=== PATIENT | male | born 1955 | race Caucasian/White ===

== ENCOUNTER → 2018-05-05 13:09 | Outpatient (CLI) | payer OTHER, SELFPAY ==
[2018-05-05 14:08] LABS: Absolute Lymphocyte Count 1.76 X10^3/ul (0.83-4.51); Absolute Neutrophil Count 4.3 X10^3/uL (2.0-7.7); Basophil# 0.02 X10^3/uL; Basophil% 0.3 % (0-1); Eosinophil# 0.13 X10^3/uL; Eosinophils% 1.9 % (0-5); Hematocrit 44.9 % (40-54); Hemoglobin 15.1 g/dl (13.0-16.5); Lymphocyte # 1.76 X10^3/ul (4.0); Lymphocyte % 26.3 % (19-41); Mean Corp Hgb Conc 33.6 g/gl (32-36); Mean Corpuscular Hgb 28.7 pg (27.0-32.0); Mean Corpuscular Volume 85.4 fL (80-94); Mean Platelet Vol. 9.1 fl (6.2-12.0); Monocyte# 0.52 X10^3/uL; Monocyte% 7.8 % (0-10); Neutrophil # 4.26 X10^3/uL (2.7-7.7); Neutrophil % 63.6 % (47-70); Platelet Count 189 K/mm3 (150-450); RBC Distribution Width CV 12.7 % (11.6-14.6); RBC Distribution Width SD 39.7 fl (35.1-43.9); Red Blood Count 5.26 M/mm3 (4.6-6.2); White Blood Count 6.7 K/mm3 (4.4-11.0)
[2018-05-05 14:09] LABS: POSITIVE COUNT NO; POSITIVE DIFFERENTIAL NO; POSITIVE MORPHOLOGY NO
[2018-05-05 14:25] LABS: ALB/GLOB Ratio 1.1 RATIO (0.9-2.4); AST(SGOT) 23 U/L (15-37); Alanine Aminotransfer ALT/SGPT 30 U/L (16-61); Albumin, Serum 3.8 g/dL (3.2-5.0); Alkaline Phosphatase 77 U/L (45-117); Anion Gap 8 (5-15); BUN 14 mg/dL (7-18); BUN/Creat Ratio 14.4 RATIO (10-20); Calcium,Total 8.7 mg/dL (8.5-10.1); Chloride 109 mmol/L (98-107); Cholesterol 133 mg/dL (200); Creatinine, Serum 0.97 mg/dL (0.70-1.30); EST Glomerular Filtration Rate 84 mL/min (>60); Est Glom Filt Rate - Afr Amer 101 mL/min (>60); Globulin 3.5 g/dL (2.2-4.2); Glucose 94 mg/dL (74-106); High Density Lipoprotein 39 mg/dL; PSA,Total - Annual Screen 0.55 ng/mL (0.00-4.00); Potassium 4.1 mmol/L (3.5-5.1); Protein, Total 7.3 g/dL (6.4-8.2); Sodium Level 143 mmol/L (136-145); Triglycerides 66 mg/dL; Very Low Density Lipoprotein 13 mg/dL (5-40)
== END ==
PROVIDERS: Family Provider Family Medicine; PCP Family Medicine; Visit Provider Family Medicine
DX: Z00.00 Encounter for general adult medical examination without abnormal findings (principal); Z12.5 Encounter for screening for malignant neoplasm of prostate
CPT/HCPCS: 36415; 80053; 80061; 84153; 85025; G0103

== ENCOUNTER 2018-05-10 06:54 | Day surgery (SDC) | payer OTHER, SELFPAY ==
[2018-05-10] VITALS (7 sets, daily range): BP systolic 99–116; BP diastolic 67–81; PULSE 51–59; RESP 14–16; TEMP 36.1–36.4; O2SAT 95–98; BMI 27.6
--- NOTE | 2018-05-10 08:00 | COLBX_PTH ---
PATIENT: ROSSY BRYAN LOC: EN U#:[id number] AGE/SX: 62/M ROOM: RE05/10/[address]: Dr. Porfirio Peraza MD : [id number] BED: DIS: 05/10/2018 SPEC #: [id number] RECD: 05/10/18 11:32 STATUS: NELY KAM #: [id number] CONCHIS: 05/10/18 08:[address]: Porfirio Peraza DEPT: SURGICAL PATHOLOGY RECD BY: Tay Mahoney ENTERED: 05/10/18 11:51 SP TYPE: COLON BX OTHR DR: Dr. Daly Isaac MD Tissues: Cecum, NOS Procedures: Surgery Specimen Level IV HEADER OPERATION: Colonoscopy (MAC) PRE-OP DIAGNOSIS: Screening TISSUE SUBMITTED: Cecal polyp MICROSCOPIC DIAGNOSIS Cecal polyp, biopsy: Fragments of tubular adenoma. SJ:nadia 05/11/18 MICROSCOPIC DESCRIPTION Slides are reviewed. GROSS DESCRIPTION Received in fixative is one container labeled with the patient's name and designated cecal polyp. The specimen consists of multiple irregular fragments of light brewster soft tissue that in aggregate measure 2 x 0.5 x 0.1 cm. The specimen is totally submitted in one cassette. / SJ:nadia 05/10/18 TC:1 CPT: 43272
--- NOTE | 2018-05-10 08:14 | PCM.OPRPT ---
Problem List (1) Screen for colon cancer Status: Acute Report of Operation Date of Procedure: 05/10/18 Pre-Operative Diagnosis: Screening colonoscopy Post-Operative Diagnosis: 1. Cecal polyp. 2. Diverticulosis Surgery/Procedure Performed:: Colonoscopy with snare polypectomy Specimen's removed: Cecal polyp Description of Procedure: The major risks and benefits associated with the procedure were explained to the patient in detail. The patient verbalized understanding and agreement with the same. The patient was brought to the endoscopy suite. After adequate sedation was achieved, the patient was placed in the left lateral decubitus position and a digital rectal exam was performed. This examination was within normal limits. A well-lubricated colonoscope was then inserted into the rectum and advanced under direct visualization to the level of the cecum. The bowel prep was good. The cecum was identified by both visual and anatomic landmarks. A photograph was taken of the end of the cecum. The patient had a pedunculated polyp just adjacent to the appendix. This was removed with cautery snare. The scope was then fully withdrawn while examining the color, texture, anatomy and integrity of the mucosa from the cecum to the anal canal. The findings were consistent with normal colonic mucosa. Over 6 minutes were taken to examine the colonic mucosa. The patient did have sparse diverticulosis of the entire colon. Upon reaching the rectum the scope was retroflexed to examine the distal rectal vault. The scope was then straightened and was completely retrieved upon exiting the anal canal and the procedure was terminated. The patient was then transferred to the recovery room in stable condition. Recommendations for follow up: Dependent on pathology
== END 2018-05-10 08:42 | disposition home or self-care (01) ==
LOC: EN 06:54 → AC 06:56
PROVIDERS: Family Provider Family Medicine; PCP Family Medicine; Visit Provider Surgery
PROC: 0DJD8ZZ Inspection of Lower Intestinal Tract, Via Natural or Artificial Opening Endoscopic (ICD-10-PCS; CPT 45378; principal; 2018-05-10 07:55)
DX: Z12.11 Encounter for screening for malignant neoplasm of colon (principal); D12.0 Benign neoplasm of cecum; K57.30 Diverticulosis of large intestine without perforation or abscess without bleeding; K40.90 Unilateral inguinal hernia, without obstruction or gangrene, not specified as recurrent; Z79.82 Long term (current) use of aspirin; Z87.891 Personal history of nicotine dependence
CPT/HCPCS: 45380; 88305; J7120

== ENCOUNTER 2019-09-17 09:42 | Day surgery (SDC) | payer OTHER, SELFPAY ==
--- NOTE | 2019-07-26 02:41 | HP_ITS ---
Intake Vital Signs 07/26/19 Height 5 ft 11 in 07/26/19 Weight: 205 lb 07/26/19 Body Mass Index (BMI) 28.5 07/26/19 Blood Pressure 118/79 07/26/19 Blood Pressure Location Rt brachial 07/26/19 Blood Pressure Position Sitting 07/26/19 Respiratory Rate 16 07/26/19 Body Mass Index (BMI) 29.3 Intake Visit Reasons: Ventral Hernia (seen 04/2018) Chief Complaint: Sore Throat Dentures Lab Technician Required: No Is patient in pain?: No Allergies No Known Allergies Allergy (Verified 07/26/19 14:23) [facility] [place] Medical History Recovering alcoholic (Acute) Surgical History h/o tonsillectomy (Acute) Family History Aunt Heart disease Uncle Heart disease Mother Hypertension CVA (cerebral vascular accident) Social History (Updated 07/26/19 @ 14:41 by Porfirio Peraza MD) Smoking Status: Former smoker alcohol intake: former details: recovering HPI HPI HPI: ROSSY BRYAN, is a 63 M who presents to the office today for HPI HPI Surgical H&P: Yes HPI: ROSSY BRYAN, is a 63 M who presents to the office today for right groin bulging. The patient says that his right groin bulging has gotten worse in the last few months and is causing him pain especially when lifting. He has no symptoms on the opposite side. He is having no nausea or vomiting or fevers or chills. ROS General General: No weight change, appetite, fatigue, colon cancer, breast cancer or weakness HEENT HEENT: No difficulty swallowing, eye injury, eye surgery, swollen glands or hoarseness Endo Endocrine: No thyroid disease, diabetes mellitus, thyroid cancer, Hair loss, heat intolerance or cold intolerance Skin Skin: No rash or changing moles Breast Breast: No left breast lump, right breast lump, nipple discharge, breast pain, abnormal mammogram, abnormal US or breast enlargement Musc Musculoskeletal: No back problems, arthritis, rheumatoid arthritis, gout or joint pain Cardio Cardiovascular: No murmur, pacemaker, heart disease, atrial fibrillation, high blood pressure, heart attack, heart stent, palpitations, shortness of breat with exertion or chest pain Psych Psychiatric: No depression, anxiety or hearing voices Resp Respiratory: No shortness of breath, No sleep apnea, No cough, No COPD, No asthma, No emphysema, No wheezing Gastro Gastrointestinal: Yes abdominal pain, No nausea or vomiting, No diarrhea, No constipation, No blood in stool, No acid reflux, No hemorrhoids, No ulcers, No gallbladder problem, No black,tarry stools See Hematologic: No blood thinners, No blood disorders, No bleeding, No anemia, No blood clots Neuro Neurologic: No system reviewed and no additional complaints, except as docu, No as per HPI, No abnormal walking, No abnormal hearing, No abnormal movements, No abnormal speech, No behavioral changes, No burning sensations, No confusion, No seizure-like activity, No unsteadiness, No dizziness, No localized weakness, No frequent falls, No headache(s), No lack of coordination, No loss of vision, No memory loss, No numbness, No other visual disturbances, No radiating pain, No restless legs, No sensory deficit, No fainting, No tingling, No tremor(s), No weakness, No other Exam Const General: cooperative Orientation: alert, oriented x3 HENMT Head: normal to inspection Ears: hearing grossly normal bilaterally Eyes General: appearance normal, both eyes and all related structures Visual Brown: normal visual brown by confrontation Neck Neck: normal visual inspection Chest Chest palpation & inspection: normal inspection of the chest Breast Palpation: No nipple discharge Resp Effort & Inspection: normal respiratory effort Auscultation: clear to auscultation bilaterally Cardio Rate: regular rate Rhythm: regular rhythm Heart Sounds: no murmurs GI Inspection: non-distended Palpation: soft, hernia indirect inguinal on the right, nontender Musc Cervical Spine: normal cervical lordosis, cervical ROM normal Skin General: no rashes or lesions noted Neuro General: alert, oriented x3 Cranial Nerves: CN's II-XI intact bilaterally Cognition: normal cognition Extrem General: normal to inspection, full ROM Psych Appearance: grossly normal Affect: normal affect Assessment & Plan Problems 1. Right inguinal hernia K40.90 Plan The patient has a reducible right inguinal hernia. I discussed open versus laparoscopic repair. The patient would like laparoscopic repair. I offer the patient robotic assisted laparoscopic right inguinal hernia repair with mesh. I described the risks including but not limited to bleeding, infection, injury to underlying bowel, spermatic cord injury, chronic groin pain, hernia recurrence. The patient understands risks and is willing to proceed with repair. I also discussed inspecting the contralateral side. If there is a hernia on this side I offered repair and the patient would like to have this repaired if there is a hernia on the opposite side. Porfirio Peraza MD Pager: [facility] [address] [place] [address], [address] [place] [address] Office: Coding Level of Care Code Off vis,est,level 4 Diagnoses Right inguinal hernia K40.90 Time Spent (min) 45 07/26/19 1441 <Electronically signed by Porfirio messina MD> Date _ Porfirio Peraza MD I have re-examined the patient. There are no clinical changes since date of exam.
[2019-07-26 14:23] VITALS: BMI 28.5
--- NOTE | 2019-09-11 16:23 | EKG12_ITS ---
Test Reason : PRE OP Blood Pressure : / mmHG Vent. Rate : 056 BPM Atrial Rate : 056 BPM P-R Int : 192 ms QRS Dur : 088 ms QT Int : 430 ms P-R-T Axes : 061 051 053 degrees QTc Int : 414 ms Sinus bradycardia Otherwise normal ECG Confirmed by JAKE LATIF ([id number]), medical editor GIORGIO PERRY ([id number]) on 09/14/2019 11:26:53 AM Referred By: Porfirio Peraza Confirmed By:JAKE LATIF
[2019-09-11 18:11] LABS: Hematocrit 42.2 % (40-54); Hemoglobin 14.1 g/dL (13.0-16.5); Mean Corp Hgb Conc 33.4 g/dL (32-36); Mean Corpuscular Hgb 28.5 pg (27.0-32.0); Mean Corpuscular Volume 85.4 fL (80-94); Mean Platelet Vol. 8.9 fl (6.2-12.0); Platelet Count 183 K/mm3 (150-450); RBC Distribution Width CV 11.9 % (11.6-14.6); RBC Distribution Width SD 37.1 fl (35.1-43.9); Red Blood Count 4.94 M/mm3 (4.6-6.2); White Blood Count 5.8 K/mm3 (4.4-11.0)
--- NOTE | 2019-09-17 08:45 | HP_ITS ---
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 Is patient in pain?: No Allergies No Known Allergies Allergy (Verified 07/26/19 14:23) [facility] Medical History Recovering alcoholic (Acute) Surgical History h/o tonsillectomy (Acute) Family History Aunt Heart disease Uncle Heart disease Mother Hypertension CVA (cerebral vascular accident) Social History (Updated 07/26/19 @ 14:41 by Porfirio Peraza MD) Smoking Status: Former smoker alcohol intake: former details: recovering HPI HPI HPI: ROSSY BRYAN, is a 63 M who presents to the office today for HPI HPI Surgical H&P: Yes HPI: ROSSY BRYAN, is a 63 M who presents to the office today for right groin bulging. The patient says that his right groin bulging has gotten worse in the last few months and is causing him pain especially when lifting. He has no symptoms on the opposite side. He is having no nausea or vomiting or fevers or chills. ROS General General: No weight change, appetite, fatigue, colon cancer, breast cancer or weakness HEENT HEENT: No difficulty swallowing, eye injury, eye surgery, swollen glands or hoarseness Endo Endocrine: No thyroid disease, diabetes mellitus, thyroid cancer, Hair loss, heat intolerance or cold intolerance Skin Skin: No rash or changing moles Breast Breast: No left breast lump, right breast lump, nipple discharge, breast pain, abnormal mammogram, abnormal US or breast enlargement Musc Musculoskeletal: No back problems, arthritis, rheumatoid arthritis, gout or joint pain Cardio Cardiovascular: No murmur, pacemaker, heart disease, atrial fibrillation, high blood pressure, heart attack, heart stent, palpitations, shortness of breat with exertion or chest pain Psych Psychiatric: No depression, anxiety or hearing voices Resp Respiratory: No shortness of breath, No sleep apnea, No cough, No COPD, No asthma, No emphysema, No wheezing Gastro Gastrointestinal: Yes abdominal pain, No nausea or vomiting, No diarrhea, No constipation, No blood in stool, No acid reflux, No hemorrhoids, No ulcers, No gallbladder problem, No black,tarry stools See Hematologic: No blood thinners, No blood disorders, No bleeding, No anemia, No blood clots Neuro Neurologic: No system reviewed and no additional complaints, except as docu, No as per HPI, No abnormal walking, No abnormal hearing, No abnormal movements, No abnormal speech, No behavioral changes, No burning sensations, No confusion, No seizure-like activity, No unsteadiness, No dizziness, No localized weakness, No frequent falls, No headache(s), No lack of coordination, No loss of vision, No memory loss, No numbness, No other visual disturbances, No radiating pain, No restless legs, No sensory deficit, No fainting, No tingling, No tremor(s), No weakness, No other Exam Const General: cooperative Orientation: alert, oriented x3 HENMT Head: normal to inspection Ears: hearing grossly normal bilaterally Eyes General: appearance normal, both eyes and all related structures Visual Brown: normal visual brown by confrontation Neck Neck: normal visual inspection Chest Chest palpation & inspection: normal inspection of the chest Breast Palpation: No nipple discharge Resp Effort & Inspection: normal respiratory effort Auscultation: clear to auscultation bilaterally Cardio Rate: regular rate Rhythm: regular rhythm Heart Sounds: no murmurs GI Inspection: non-distended Palpation: soft, hernia indirect inguinal on the right, nontender Musc Cervical Spine: normal cervical lordosis, cervical ROM normal Skin General: no rashes or lesions noted Neuro General: alert, oriented x3 Cranial Nerves: CN's II-XI intact bilaterally Cognition: normal cognition Extrem General: normal to inspection, full ROM Psych Appearance: grossly normal Affect: normal affect Assessment & Plan Problems 1. Right inguinal hernia K40.90 Plan The patient has a reducible right inguinal hernia. I discussed open versus laparoscopic repair. The patient would like laparoscopic repair. I offer the patient robotic assisted laparoscopic right inguinal hernia repair with mesh. I described the risks including but not limited to bleeding, infection, injury to underlying bowel, spermatic cord injury, chronic groin pain, hernia recurrence. The patient understands risks and is willing to proceed with repair. I also discussed inspecting the contralateral side. If there is a hernia on this side I offered repair and the patient would like to have this repaired if there is a hernia on the opposite side. Porfirio Peraza MD Pager: [facility] [address] [place] [address], [address] [place] [address] Office: Coding Level of Care Code Off vis,est,level 4 Diagnoses Right inguinal hernia K40.90 Time Spent (min) 45 I have re-examined the patient. There are no clinical changes since date of exam.
[2019-09-17 10:17] VITALS: BP 134/85; PULSE 58; RESP 15; TEMP 36.4; O2SAT 98; BMI 28.3
[2019-09-17] MEDS: Lactated Ringers 1,000 ML 100 ML IV ×3 (10:34→16:50)
[2019-09-17] MEDS: Cefazolin 2 GM in 0.9% Normal Saline 100 ML IV (11:49)
[2019-09-17] MEDS: Bupivacaine Mpf 0.5% 30 ML VIAL (13:07)
[2019-09-17 13:23] VITALS: BP 132/85; BP 134/85; PULSE 63; RESP 16; TEMP 36.7; O2SAT 94
[2019-09-17 13:30] VITALS: BP 126/78; BP 134/85; PULSE 58; RESP 16; O2SAT 95
[2019-09-17 13:45] VITALS: BP 119/79; BP 134/85; PULSE 56; RESP 16; O2SAT 92
[2019-09-17 14:00] VITALS: BP 108/74; BP 134/85; PULSE 55; RESP 16; TEMP 36.3; O2SAT 95
--- NOTE | 2019-09-17 14:02 | PCM.OPRPT ---
Problem List (1) Bilat ing hernia Status: Acute Qualifiers: Obstruction and gangrene presence: without obstruction or gangrene Recurrence: not specified as recurrent Qualified Code(s): K40.20 - Bilateral inguinal hernia, without obstruction or gangrene, not specified as recurrent Report of Operation Date of Procedure: 09/17/19 Pre-Operative Diagnosis: Right inguinal hernia Post-Operative Diagnosis: Bilateral inguinal hernia Surgery/Procedure Performed:: Robotic assisted laparoscopic bilateral inguinal hernia repair with mesh Description of Procedure: The patient was brought back to the operating room and general anesthesia was induced. The abdomen was prepped and draped in usual sterile fashion. An incision was made superior to the umbilicus and Flor clamps were used to grasp the fascia and elevate it. Veress needle was placed into the abdomen and a drop test was performed. Next the abdomen was insufflated to 15 mmHg. The Veress needle was removed and the camera port was placed through this incision and then the camera was placed into the abdomen to inspect for injuries and there were none. Next the patient was placed in a Trendelenburg position and it was noted the patient had a large direct right inguinal hernia and a small direct left inguinal hernia. Next an 8 mm port was placed in the right and left lateral abdominal sidewall under direct visualization. The robot was then docked. Attention was first paid to the right side. The peritoneum was incised and the dissection taken inferiorly until the hernia sac was reduced. The pubic tubercle was exposed and the dissection was carried posteriorly. Next pro-flat sorting machine clerk mesh was placed into the right inguinal region and unfolded. The pro-flat sorting machine clerk mesh was tacked to the pubic tubercle using an 0 Vicryl suture medially. Next the peritoneum was reapproximated using a running 3-0 Vloc suture. The peritoneum completely covered the mesh. Next attention was paid to the left side. In the same fashion the peritoneum was incised and the dissection was carried inferiorly until the hernia sac was reduced. The patient has small indirect and a small direct hernia on the side. Once fully dissected inferiorly a piece of pro-flat sorting machine clerk mesh was placed into the left inguinal region and unfolded completely covering both hernias. The peritoneum was then reapproximated using a running 3-0V lock suture. Next the instruments were removed and the robot was undocked. Patient was placed in flat position and the abdomen was desufflated. Scrotum was inspected and contain both testicles. Next the ports were removed and the incisions were anesthetized and closed with interrupted 4-0 Monocryl sutures. Steri-Strips and bandages were then applied. Patient tolerated procedure well was brought to PACU in stable condition. Grafts/Implants Used: ProGrip - Admit VTE Documentation VTE Mechan Device Prophylaxis: SCD's
--- NOTE | 2019-09-17 14:07 | PCM.DC.HER ---
Discharge Diet: Light diet - advance as tolerated Discharge Activity: Return to Normal Activity, May Not Drive - for 2-3 days or while taking narcotic pain meds., May Shower - with the bandage in place 1-2 days after surgery. Lifting Restrictions: 20 pounds for 4 weeks. Additional Activity Instructions:: Climbing stairs is fine, walking is encouraged. Sitting in bed may be uncomfortable. Sitting up using your lateral muscles (sitting up sideways) is usually more comfortable. Do not drive, work heavy equipment of sign legal documents for 24 hours. If your hernia repair was an ingunial repair, you may have scrotal swelling, an ice pack and/or athletic support can provide more comfort. Pain medications may cause nausea, you should typically eat light foods as you take your pain medications. Pain medications may also cause constipation. If you have difficulty with this, discuss with your doctor. Call your doctor if your incision/area has: Continuous Slow Oozing, Sudden Increased Bleeding, Increased Pain/ Swelling, Increased Redness, Foul Smelling Discharge Call your doctor if you observe: Fever of 101 or Higher Suture Line Care: Avoid Pulling/Pushing, Avoid Pinching/Bending Change Dressing in (Days):: 3 - Leave steri-strips for 1 week. May protect with a guaze bandaid. Cleanse incision/area with: Keep Dressing Clean & Dry Allergies/Adverse Reactions: Allergies No Known Allergies Allergy (Verified 09/17/19 10:16) Medications to take at Discharge Acetaminophen [Tylenol Extra Strength] 500 mg PO Q6H PRN PRN 09/10/19 Oxycodone HCl/Acetaminophen [Percocet 5/325] 1 tablet PO Q4H PRN PRN 7 Days #10 tablet 09/17/19 Orders to be completed after discharge: 12 Lead EKG [[facility]] Time Frame: 09/10/19, Facility: [facility], Location: Cardiovascular Services CBC-Complete Blood Cnt No Diff Time Frame: 09/10/19, Facility: [facility], Location: Laboratory Primary Care Physician: Daly Isaac MD [Primary Care Provider] - Test Results: Test results from this visit will be discussed in further detail at your follow-up appointment, if applicable. Please Follow Up With: Porfirio Peraza MD When: Please call to schedule 2 week follow up appointment. [phone]
[2019-09-17] MEDS: Tamsulosin HCl 0.4 MG Capsule PO (17:30)
[2019-09-17 18:23] VITALS: BP 134/85; BP 163/84; PULSE 64; RESP 16; TEMP 36.4; O2SAT 99
== END 2019-09-17 18:32 | disposition home or self-care (01) ==
LOC: SDC 09:45 → AC 09:45
PROVIDERS: Family Provider Family Medicine; PCP Family Medicine; Referring Provider Surgery; Visit Provider Surgery
PROC: (CPT 49650; principal; 2019-09-17 11:10)
DX: K40.20 Bilateral inguinal hernia, without obstruction or gangrene, not specified as recurrent (principal); Z87.891 Personal history of nicotine dependence
CPT/HCPCS: 00840; 49650; 36415; 85027; 93005; J7120; J2405

== ENCOUNTER → 2020-01-18 | Outpatient (CLI) | payer OTHER, SELFPAY ==
[2020-01-18 12:19] LABS: Absolute Lymphocyte Count 1.59 X10^3/uL (0.83-4.51); Absolute Neutrophil Count 3.3 X10^3/uL (2.0-7.7); Basophil# 0.03 X10^3/uL; Basophil% 0.5 % (0-1); Eosinophil# 0.09 X10^3/uL; Eosinophils% 1.6 % (0-5); Hematocrit 45.2 % (40-54); Hemoglobin 14.9 g/dL (13.0-16.5); Lymphocyte # 1.59 X10^3/ul (4.0); Lymphocyte % 28.3 % (19-41); Mean Corpuscular Hgb 28.6 pg (27.0-32.0); Mean Corpuscular Volume 86.8 fL (80-94); Mean Platelet Vol. 9.2 fl (6.2-12.0); Monocyte# 0.55 X10^3/uL; Monocyte% 9.8 % (0-10); NRBC Flagged by Analyzer 0 % (0-5); Neutrophil # 3.34 X10^3/uL (2.7-7.7); Neutrophil % 59.4 % (47-70); Platelet Count 203 K/mm3 (150-450); RBC Distribution Width CV 12.2 % (11.6-14.6); RBC Distribution Width SD 38.8 fl (35.1-43.9); Red Blood Count 5.21 M/mm3 (4.6-6.2); White Blood Count 5.6 K/mm3 (4.4-11.0)
[2020-01-18 12:51] LABS: ALB/GLOB Ratio 1.2 RATIO (0.9-2.4); AST(SGOT) 20 U/L (15-37); Alanine Aminotransfer ALT/SGPT 29 U/L (16-61); Albumin, Serum 3.8 g/dL (3.2-5.0); Alkaline Phosphatase 70 U/L (45-117); Anion Gap 4 (5-15); BUN 12 mg/dL (7-18); BUN/Creat Ratio 12.4 RATIO (10-20); Calcium,Total 8.7 mg/dL (8.5-10.1); Chloride 106 mmol/L (98-107); Cholesterol 169 mg/dL (200); Creatinine, Serum 0.97 mg/dL (0.70-1.30); EST Glomerular Filtration Rate 83 mL/min (>60); Est Glom Filt Rate - Afr Amer 101 mL/min (>60); Globulin 3.3 g/dL (2.2-4.2); Glucose 85 mg/dL (74-106); High Density Lipoprotein 45 mg/dL; PSA,Total - Annual Screen 0.64 ng/mL (0.00-4.00); Potassium 4.2 mmol/L (3.5-5.1); Protein, Total 7.1 g/dL (6.4-8.2); Sodium Level 138 mmol/L (136-145); Triglycerides 101 mg/dL; Very Low Density Lipoprotein 20 mg/dL (5-40)
== END | disposition home or self-care (01) ==
LOC: MTLAB 10:31
PROVIDERS: PCP Family Medicine; Referring Provider Family Medicine; Visit Provider Family Medicine
DX: Z00.00 Encounter for general adult medical examination without abnormal findings (principal)
CPT/HCPCS: 36415; 80053; 80061; 84153; 85025; G0103

== ENCOUNTER 2020-10-13 05:45 | Emergency (ER) | payer OTHER, SELFPAY ==
[2020-10-13 05:45] VITALS: BP 179/102; PULSE 65; RESP 15; TEMP 36.7; O2SAT 98; BMI 29.7
--- NOTE | 2020-10-13 06:01 | CT_ITS ---
STUDY: CT ABDOMEN AND PELVIS WITH CONTRAST REASON FOR EXAM: Male, 64 years old. MID ABD PAIN. RADIATION DOSAGE (If Supplied By Facility): CTDIvol = ( 13.295 ) mGy, DLP = ( 937.12 ) mGycm TECHNIQUE: Transaxial images were obtained from the dome of the diaphragm to the symphysis pubis with oral contrast. 100 mL of IV ISOVUE-300 was administered. Sagittal and coronal images were reconstructed. Individualized dose optimization techniques were used for this CT. COMPARISON: None. FINDINGS: The visualized lung bases are unremarkable. The visualized portions of the heart are within normal limits. Normal liver. Normal gallbladder and extrahepatic biliary system. Normal spleen. Normal pancreas. Normal bilateral adrenal glands. Normal right kidney. Normal left kidney. Normal visualized stomach. Normal small intestine. Normal colon. The appendix is visualized and appears normal. Minimal calcified plaques in the infrarenal abdominal aorta. No abdominal aortic aneurysm. Normal inferior vena cava. Normal retroperitoneum. Minimal thickening of the posterior urinary bladder wall. The right lateral aspect of the prostate gland is mildly prominent when compared to the left. The central lobe of prostate gland is normal in size and configuration. Anterior midline upper abdominal wall hernia containing only omental fat. There is mild stranding and haziness of the omental fat. Moderate dextroscoliosis of the upper lumbar spine. No acute osseous abnormality. CT/Abdomen/Pelvis WITH Contrast IMPRESSION: 1. Anterior midline upper abdominal wall hernia containing only omental fat but there is some mild stranding and haziness of the herniated omental fat possibly due to infarction. 2. Minimal thickening of the posterior urinary bladder wall. Cystoscopy may be indicated. 3. Prominent right lateral aspect of the prostate gland. MRI of the prostate may be helpful for further evaluation. Electronically Signed: Marcin Caceres MD at 8:31 EST , Service support ,
--- NOTE | 2020-10-13 06:04 | ED.DCSUM_ITS ---
- ER Visit Summary Date of Service: 10/13/20 Chief Complaint: Abdominal pain History of Present Illness: The patient is a 64 M who presents with abdominal pain that became worse today. Patient states he has had intermittent abdominal pain for several months. Patient states the pain became worse today. Patient states the pain is over the mid abdomen. Patient describes it as sharp. Patient states nothing makes it better and nothing makes it worse. Patient admits to some nausea but denies any vomiting. Patient denies any diarrhea, melena, or hematochezia. Patient denies any dysuria or hematuria. Patient denies any fevers or chills. Physical Examination: Vital signs are stable. Patient is afebrile. Patient is in no acute distress. Oral mucosa is pink and moist. Neck is supple. Trachea is midline. There is no JVD noted. Heart was regular rate and rhythm. Lungs a re clear and equal bilaterally. Abdomen is soft. Bowel sounds are normal. There is mild mid abdominal tenderness above the umbilicus. There is a ventral hernia noted. It is easily reduced. There is no rebound or guarding noted. Skin is warm dry. Cranial nerves II through XII are intact. There are no focal motor or sensory deficits noted. Extremities are intact. There is no calf tenderness or edema. Test Results: CBC and comprehensive metabolic profile were within normal limits. Lipase was normal. Urinalysis is ordered and is pending. CT scan of the abdomen and pelvis was obtained and is pending. Emergency Department Course and Treatment: Patient was given IV fluids and Zofran. Disposition: Care of the patient was turned over to the oncoming physician pending urinalysis and CT scan. Impression: 1. Abdominal pain This note was generated with [employer] dictation software. It may contain incorrect words, spelling, and punctuation that were not noted in review of the chart prior to signing ED Disposition - Plan for ED Patient: Referrals: Daly Isaac MD [Primary Care Provider] -
[2020-10-13 06:08] LABS: Absolute Neutrophil Count 4.5 X10^3/uL (2.0-7.7); Basophil# 0.04 X10^3/uL; Basophil% 0.5 % (0-1); Eosinophil# 0.13 X10^3/uL; Eosinophils% 1.7 % (0-5); Hematocrit 48.8 % (40-54); Hemoglobin 16.7 g/dL (13.0-16.5); Lymphocyte % 29.7 % (19-41); Mean Corp Hgb Conc 34.2 g/dL (32-36); Mean Corpuscular Hgb 29.9 pg (27.0-32.0); Mean Corpuscular Volume 87.3 fL (80-94); Mean Platelet Vol. 9.4 fl (6.2-12.0); Monocyte# 0.77 X10^3/uL; Monocyte% 9.9 % (0-10); NRBC Flagged by Analyzer 0 % (0-5); Neutrophil # 4.48 X10^3/uL (2.7-7.7); Neutrophil % 57.8 % (47-70); Platelet Count 188 K/mm3 (150-450); RBC Distribution Width CV 12.9 % (11.6-14.6); RBC Distribution Width SD 39.1 fl (35.1-43.9); Red Blood Count 5.59 M/mm3 (4.6-6.2); White Blood Count 7.8 K/mm3 (4.4-11.0)
[2020-10-13] MEDS: Ondansetron 4 MG/2 ML Vial IV (06:13)
[2020-10-13] MEDS: 0.9% Normal Saline 1,000 ML 1000 ML IV (06:13)
[2020-10-13 06:20] LABS: ALB/GLOB Ratio 1.1 RATIO (0.9-2.4); AST(SGOT) 19 U/L (15-37); Alanine Aminotransfer ALT/SGPT 28 U/L (16-61); Alkaline Phosphatase 81 U/L (45-117); Anion Gap 5 (5-15); BUN 14 mg/dL (7-18); BUN/Creat Ratio 12.5 RATIO (10-20); Chloride 104 mmol/L (98-107); Creatinine, Serum 1.12 mg/dL (0.70-1.30); EST Glomerular Filtration Rate 70 mL/min (>60); Est Glom Filt Rate - Afr Amer 85 mL/min (>60); Estimated Creatinine Clearance 75.06 ml/min; Globulin 3.7 g/dL (2.2-4.2); Glucose 106 mg/dL (74-106); Lipase 153 U/L (73-393); Potassium 4.2 mmol/L (3.5-5.1); Protein, Total 7.7 g/dL (6.4-8.2); Sodium Level 138 mmol/L (136-145)
[2020-10-13 06:44] LABS: Bacteria 0 SEEN /hpf (None Seen); Mucous, Urine 0 SEEN /hpf (<or=2+); Squamous Epithelial Cells - UA 0 SEEN /hpf (0-5); White Blood Cells 0 SEEN /hpf (0-5)
[2020-10-13 07:00] LABS: Color, Urine Yellow (Yellow); Glucose, Dipstick Normal (Normal); Ketone-Dipstick Negative (Negative); Urine Bilirubin Dipstick Negative (Negative); Urine Clarity Clear (Clear)
[2020-10-13 07:01] LABS: Leukocyte Esterase-Dipstick Negative /ul (Negative); Nitrite-Dipstick Negative (Negative); Occult Blood-Urine Negative /ul (Negative); Protein-Dipstick Negative (Negative); Specific Gravity, Urine 1.025 (1.002-1.030); Urine Urobilinogen Normal (Normal)
[2020-10-13 07:04] LABS: Red Blood Cells-Urine 0-5 SEEN /hpf (0-5)
[2020-10-13 08:09] VITALS: BP 138/84; PULSE 85; RESP 16; O2SAT 95
--- NOTE | 2020-10-13 08:10 | ED.DCSUM_ITS ---
- ER Visit Summary Date of Service: 10/13/20 Chief Complaint: [] History of Present Illness: The patient is a 64 M [] Physical Examination: [] Test Results: [] Emergency Department Course and Treatment: [] Treatment Plan: [] Disposition: [] Impression: [] This note was generated with [employer] dictation software. It may contain incorrect words, spelling, and punctuation that were not noted in review of the chart prior to signing ED Disposition - Plan for ED Patient: Disposition: Home or Assisted Living Instructions: ED Hernia (Adult) Prescriptions: Docusate Sodium [Dulcolax Stool Softener] 100 mg PO DAILY #20 cap Transmission Status: Pending to [facility] Referrals: Daly Isaac MD [Primary Care Provider] -
--- NOTE | 2020-10-13 08:12 | ED.DCSUM_ITS ---
- ER Visit Summary Date of Service: 10/13/20 Chief Complaint: [] History of Present Illness: The patient is a 64 M [] Physical Examination: [] Test Results: [] Emergency Department Course and Treatment: [] Treatment Plan: [] Disposition: [] Impression: [] This note was generated with [employer] dictation software. It may contain incorrect words, spelling, and punctuation that were not noted in review of the chart prior to signing ED Disposition - Plan for ED Patient: Disposition: Home or Assisted Living Instructions: ED Hernia (Adult) Prescriptions: Docusate Sodium [Dulcolax Stool Softener] 100 mg PO DAILY #20 cap Transmission Status: Sent to [facility] Referrals: Daly Isaac MD [Primary Care Provider] - Porfirio Peraza MD [STAFF PHYSICIAN] -
== END 2020-10-13 09:08 | disposition home or self-care (01) ==
PROVIDERS: Emergency Provider Emergency Medicine; PCP Family Medicine
DX: K43.9 Ventral hernia without obstruction or gangrene (principal)
CPT/HCPCS: 74177; 80053; 81001; 83690; 85025; 96361; 96374; 99283; J7030; Q9967; A4216; J2405

== ENCOUNTER 2020-11-10 06:00 | Day surgery (SDC) | payer OTHER, SELFPAY ==
[2020-10-23 13:53] VITALS: BMI 29.3
--- NOTE | 2020-11-07 13:06 | EKG12_ITS ---
Test Reason : PREOP Blood Pressure : / mmHG Vent. Rate : 069 BPM Atrial Rate : 069 BPM P-R Int : 170 ms QRS Dur : 088 ms QT Int : 402 ms P-R-T Axes : 029 054 042 degrees QTc Int : 430 ms Normal sinus rhythm Normal ECG Confirmed by TAE FREEMAN, DEONTE ([id number]), social media editor GIORGIO PERRY ([id number]) on 11/11/2020 12:21:57 PM Referred By: Daly Isaac Confirmed By:DEONTE STRONG MD
[2020-11-10] VITALS (13 sets, daily range): BP systolic 113–175; BP diastolic 82–106; PULSE 50–62; RESP 16–18; TEMP 36.2–36.5; O2SAT 92–100; BMI 28.7
--- NOTE | 2020-11-10 05:00 | HP_ITS ---
Intake Vital Signs 10/23/20 Height 6 ft 10/23/20 Weight: 216 lb 7 oz 10/23/20 BP 147/84 H 10/23/20 Blood Pressure Location Rt brachial 10/23/20 Position Sitting 10/23/20 Respiration 20 H 10/23/20 Pulse 98 10/23/20 Pulse Source NIBP 10/23/20 Temp 98.2 F 10/23/20 Temp Source Temporal 10/23/20 Pulse Oximetry (%) 99 10/23/20 Oxygen Delivery Method room air Intake Visit Reasons: Hernia [facility] ER F/U 10/13 Chief Complaint: abdominal hernia Is patient in pain?: No Allergies No Known Allergies Allergy (Verified 10/23/20 13:53) Medications Docusate Sodium [Dulcolax Stool Softener] 100 mg PO DAILY #20 cap 10/13/20 [Rx Confirmed 10/23/20] [facility] Medical History Gout (Acute) Recovering alcoholic (Acute) Surgical History (Updated 10/23/20 @ 13:52 by Christa Marrero) History of bilateral inguinal hernia repair (Acute ~2018) History of colonoscopy (Acute ~2017) History of tonsillectomy (Acute) Family History Aunt Heart disease Uncle Heart disease Mother Hypertension CVA (cerebral vascular accident) Social History (Updated 10/24/20 @ 12:[address] Porfirio Peraza MD) Smoking Status: Former smoker alcohol intake: former details: recovering HPI HPI HPI: ROSSY BRYAN, is a 64 M who presents to the office today for HPI HPI Surgical H&P: Yes HPI: ROSSY BRYAN, is a 64 M who presents to the office today for Ventral hernia. The patient reports bulging in his upper abdomen as well as pain. It has been worse lately and he even went to the emergency room because of this. He is not report any radiation or nausea or vomiting. ROS General General: No weight change, appetite, fatigue, colon cancer, breast cancer or weakness HEENT HEENT: No difficulty swallowing, eye injury, eye surgery, swollen glands or hoarseness Endo Endocrine: No thyroid disease, diabetes mellitus, thyroid cancer, Hair loss, heat intolerance or cold intolerance Musc Musculoskeletal: Yes gout; no back problems, arthritis, rheumatoid arthritis or joint pain Cardio Cardiovascular: No murmur, pacemaker, heart disease, atrial fibrillation, high blood pressure, heart attack, heart stent, palpitations, shortness of breat with exertion or chest pain Psych Psychiatric: No depression, anxiety or hearing voices Resp Respiratory: No shortness of breath, No sleep apnea, No cough, No COPD, No asthma, No emphysema, No wheezing Gastro Gastrointestinal: Yes abdominal pain, No nausea or vomiting, No diarrhea, No constipation, No blood in stool, No acid reflux, No hemorrhoids, No ulcers, No gallbladder problem, No black,tarry stools See Hematologic: No blood thinners, No blood disorders, No bleeding, No anemia, No blood clots Neuro Neurologic: No weakness Exam Const General: cooperative Orientation: alert, oriented x3 Resp Effort & Inspection: normal respiratory effort Auscultation: clear to auscultation bilaterally Cardio Rate: regular rate Rhythm: regular rhythm Heart Sounds: no murmurs GI Inspection: non-distended Palpation: soft, hernia ventral, nontender Assessment & Plan Problems 1. Ventral hernia without obstruction or gangrene K43.9 Plan Patient has a ventral hernia superior to the umbilicus. He had a CT scan in the emergency room recently which showed a ventral hernia containing omental fat. The hernia is superior to the prior incision from his laparoscopic inguinal hernia repair. I discussed laparoscopic hybrid approach for ventral hernia. I discussed opening the hernia and reducing the contents and closing the hernia and then laparoscopically placing mesh in the intraabdominal space. I explained mesh to the patient as well as well as coated mesh and intra-abdominal risks. I discussed the risks of the procedure including allergy to bleeding, infection, injury to underlying bowel. The patient understands risks and is well to proceed. I will schedule patient for laparoscopic possible open ventral hernia repair with mesh. We discussed the current risks associated with COVID-19. While it is understood that there is a community spread of COVID-19, the risk of marilynn COVID-19 while at [facility] ([facility]) is very low; however, the risk cannot be completely mitigated because of the community spread of the disease. We discussed in detail the risk of exposure to and/or potential harm posed by the COVID-19 virus with having a surgery/procedure at this time versus the risk of delaying the surgery/procedure. It is not possible to know either the risk of delaying the surgery or procedure or chance of getting an infection with perfect accuracy, but a joint decision was made to proceed at this time with the scheduled surgery/procedure as indicated on the consent form. Patient was notified that we will need to comply with any screening or testing [facility] wishes to perform or that surgery may be delayed for any positive results. Porfirio Peraza MD Pager: [facility] [address] [place] [address], [address] [place] [address] Office: Coding Level of Care Code Off vis,est,level 3 Diagnoses Ventral hernia without obstruction or gangrene K43.9 ??Obstruction and gangrene presence: without obstruction or gangrene I have seen and reexamined the patient. no changes since prior exam.
[2020-11-10] MEDS: Lactated Ringers 1,000 ML 100 ML IV ×2 (06:41→08:30)
[2020-11-10] MEDS: Cefazolin 2 GM in 0.9% Normal Saline 100 ML IV (07:15)
--- NOTE | 2020-11-10 07:30 | HERN_PTH ---
PATIENT: ROSSY BRYAN LOC: [facility] [place] U#:[id number] AGE/SX: 64/M ROOM: RE11/10/[address]: Dr. Porfirio Peraza MD : 1955 BED: DIS: 11/10/2020 SPEC #: [id number] RECD: 11/10/20 10:20 STATUS: NELY NEGIN #: [id number] CONCHIS: 11/10/20 07:[address]: Porfirio Peraza DEPT: SURGICAL PATHOLOGY RECD BY: Le Hill ENTERED: 11/10/20 10:35 SP TYPE: Hernia OTHR DR: Dr. Daly Isaac MD Tissues: HERNIA Procedures: Surgery Specimen Level II HEADER OPERATION: Laparoscopic with conversion to open ventral hernia repair PRE-OP DIAGNOSIS: Ventral hernia TISSUE SUBMITTED: Hernia sac MICROSCOPIC DIAGNOSIS Hernia sac, herniorrhaphy: Fibrosis and mild chronic inflammation. AM:nadia 11/11/2020 MICROSCOPIC DESCRIPTION Slides are reviewed. GROSS DESCRIPTION Received in fixative is one container labeled with the patient's name and designated hernia sac. The specimen consists of a piece of soft tissue measuring 6 x 4 x 1.5 cm. No mass lesion is identified. Sections do not reveal any mass lesion. Gas Prover sections are submitted in one cassette. / SJ:rg 11/10/20 TC:3 CPT: 76681
[2020-11-10] MEDS: Bupiv/Epi 0.25% 30 ML Vial (08:00)
--- NOTE | 2020-11-10 08:42 | PCM.OPRPT ---
Problem List (1) Ventral hernia Status: Acute Qualifiers: Obstruction and gangrene presence: without obstruction or gangrene Qualified Code(s): K43.9 - Ventral hernia without obstruction or gangrene Report of Operation Date of Procedure: 11/10/20 Pre-Operative Diagnosis: Incarcerated ventral hernia Post-Operative Diagnosis: Same Surgery/Procedure Performed:: Open converted to laparoscopic hybrid approach ventral hernia repair with mesh Specimen's removed: Hernia sac Description of Procedure: Patient was brought back to the operating room and general anesthesia was induced. The abdomen was prepped and draped in usual sterile fashion. An incision was marked over the hernia bulge and injected with local anesthetic. Incision was made with a scalpel and deepened to the hernia sac using electrocautery. The hernia sac was bluntly dissected free from all its lateral adhesions and then opened. It contained omentum that was incarcerated. After releasing adhesions to the hernia sac the omentum was able to be reduced into the abdomen and the hernia sac was resected using electrocautery. Finger sweep was performed and there is good clearance all around the hernia. Interrupted 0 PDS sutures were placed at the superior and inferior end of the hernia and 2 [id number] 0 PDS sutures were used to close the hernia but they have not tied yet. Next a balloon port was placed into the hernia and the abdomen was insufflated to 15 mmHg. Under direct visualization a left lateral lower quadrant and a left upper quadrant 5 mm port were placed. The patient's abdomen was inspected and he appeared to have an umbilical hernia as well. The distance between the tumor measured and a [address] light ST mesh with echo positioning device was chosen. It was placed into the abdomen and next using a Zachary Polk between the 2 hernias the balloon was brought through the skin. It was inflated and the mesh was pulled taut and appeared to cover both hernias sufficiently with good overlap. Next the balloon port was removed from the abdomen and the sutures were tightened completely closing the ventral hernia. Secure strap tacks were placed in 4 quadrants of the mesh and then the echo to positioning device was removed from it and removed from the abdomen. It was checked and appeared complete. Next using secure strap tacker the mesh was secured to the anterior fascia circumferentially in 2 rows. The abdomen was then allowed to desufflate. The cavity from the hernia sac was irrigated and suctioned dry and appeared large enough that a seroma would form so a 15 [place] round drain was placed into it and exited through the skin lateral to the incision. It was sutured to the skin using a 3-0 nylon suture. Next the skin at the incision site was anesthetized and closed with interrupted 3-0 Vicryl sutures as well as a running 4-0 Monocryl suture. The 2 port sites were closed interrupted 4-0 Monocryl sutures. They were also injected with local anesthetic. Bandages and Steri-Strips were applied and the drain was placed to bulb suction. Patient was then awoken and taken to PACU in stable condition tolerated procedure well. Grafts/Implants Used: [address] mesh - Admit VTE Documentation VTE Mechan Device Prophylaxis: SCD's
--- NOTE | 2020-11-10 08:53 | DCINST_ITS ---
Discharge Diet: Light diet - advance as tolerated Discharge Activity: Return to Normal Activity, May Not Drive - for 2-3 days or while taking narcotic pain meds., May Shower - with the bandage in place 1-2 days after surgery. Lifting Restrictions: 20 pounds for 6 weeks. Additional Activity Instructions:: Climbing stairs is fine, walking is encouraged. Sitting in bed may be uncomfortable. Sitting up using your lateral muscles (sitting up sideways) is usually more comfortable. Do not drive, work heavy equipment of sign legal documents for 24 hours. Pain medications may cause nausea, you should typically eat light foods as you take your pain medications. Pain medications may also cause constipation. If you have difficulty with this, discuss with your doctor. Call your doctor if your incision/area has: Continuous Slow Oozing, Sudden Increased Bleeding, Increased Pain/ Swelling, Increased Redness, Foul Smelling Discharge Call your doctor if you observe: Fever of 101 or Higher Suture Line Care: Avoid Pulling/Pushing, Avoid Pinching/Bending Change Dressing in (Days):: 3 - Leave steri-strips for 1 week. May protect with a guaze bandaid. Cleanse incision/area with: Keep Dressing Clean & Dry Drain: Suction Allergies/Adverse Reactions: Allergies No Known Allergies Allergy (Verified 11/10/20 06:23) Medications to take at Discharge Docusate Sodium [Dulcolax Stool Softener] 100 mg PO PRN PRN 11/03/20 Oxycodone HCl/Acetaminophen [Percocet 5-325 mg Tablet] 1 - 2 tab PO Q6H PRN PRN 5 Days #40 tablet 11/10/20 The following prescriptions were given: Oxycodone HCl/Acetaminophen [Percocet 5-325 mg Tablet] 1 - 2 tab PO Q6H PRN PRN 5 Days #40 tablet PRN Reason: Pain Score 4-10/10 Transmission Status: Sent to [facility] Orders to be completed after discharge: 12 Lead EKG [CVS] Time Frame: 11/07/20, Facility: [facility], Location: Cardiovascular Services Primary Care Physician: Daly Isaac MD [Primary Care Provider] - Test Results: Test results from this visit will be discussed in further detail at your follow- up appointment, if applicable. Please Follow Up With: Porfirio Peraza MD When: Please call to schedule 1 week follow up appointment. [phone]
[2020-11-10] MEDS: oxyCODONE 5 MG Tablet PO (10:42)
[2020-11-10] MEDS: Acetaminophen 325 MG Tablet PO (10:43)
[2020-11-10] MEDS: Tamsulosin HCl 0.4 MG Capsule PO (11:53)
--- NOTE | 2020-11-10 12:24 | SUR.PHASEII ---
1222 pt unable to void. straight cath for 900ml deepti urine. flomax given per order. will cont to monitor.
== END 2020-11-10 12:44 | disposition home or self-care (01) ==
LOC: SDC 06:00 → AC 06:01
PROVIDERS: PCP Family Medicine; Referring Provider Family Medicine; Visit Provider Surgery
PROC: 0WQF4ZZ Repair Abdominal Wall, Percutaneous Endoscopic Approach (ICD-10-PCS; CPT 49653; principal; 2020-11-10 07:10)
DX: K43.6 Other and unspecified ventral hernia with obstruction, without gangrene (principal); K42.9 Umbilical hernia without obstruction or gangrene; Z20.828 Contact with and (suspected) exposure to other viral communicable diseases; Z87.891 Personal history of nicotine dependence
CPT/HCPCS: 00832; 49653; 87426; 88302; 93005; C9803; J7120; J2405

== ENCOUNTER → 2023-01-15 | Outpatient (CLI) | payer OTHER, MEDICARE, SELFPAY ==
[2023-01-15 09:10] LABS: Bacteria 0 SEEN /hpf (None Seen); Mucous, Urine 0 SEEN /hpf (<or=2+); Red Blood Cells-Urine 0 SEEN /hpf (0-5); Squamous Epithelial Cells - UA 0 SEEN /hpf (0-5); White Blood Cells 0 SEEN /hpf (0-5)
[2023-01-15 09:42] LABS: Hematocrit 51.4 % (40-54); Hemoglobin 17.4 g/dL (13.0-16.5); Mean Corp Hgb Conc 33.9 g/dL (32-36); Mean Corpuscular Hgb 28.9 pg (27.0-32.0); Mean Corpuscular Volume 85.4 fL (80-94); Mean Platelet Vol. 8.7 fl (6.2-12.0); Platelet Count 220 K/mm3 (150-450); RBC Distribution Width CV 11.9 % (11.6-14.6); RBC Distribution Width SD 37.2 fl (35.1-43.9); Red Blood Count 6.02 M/mm3 (4.6-6.2); White Blood Count 7.3 K/mm3 (4.4-11.0)
[2023-01-15 10:21] LABS: ALB/GLOB Ratio 1.1 RATIO (0.9-2.4); AST(SGOT) 22 U/L (15-37); Alanine Aminotransfer ALT/SGPT 27 U/L (16-61); Albumin, Serum 3.2 g/dL (3.2-5.0); Alkaline Phosphatase 58 U/L (45-117); Anion Gap 4 (5-15); BUN 9 mg/dL (7-18); BUN/Creat Ratio 8.3 RATIO (10-20); Calcium,Total 8.6 mg/dL (8.5-10.1); Chloride 106 mmol/L (98-107); Cholesterol 151 mg/dL (200); Creatinine, Serum 1.09 mg/dL (0.70-1.30); EST Glomerular Filtration Rate 72 mL/min (>60); Est Glom Filt Rate - Afr Amer 87 mL/min (>60); Glucose 91 mg/dL (74-106); High Density Lipoprotein 38 mg/dL; Potassium 4.2 mmol/L (3.5-5.1); Protein, Total 6.2 g/dL (6.4-8.2); Sodium Level 137 mmol/L (136-145); Thyroid Stim Hormone (TSH) 5.72 uIU/mL (0.358-3.74); Triglycerides 103 mg/dL; Very Low Density Lipoprotein 21 mg/dL (5-40)
[2023-01-15 10:22] LABS: Color, Urine Yellow (Yellow); Glucose, Dipstick Normal (Normal); Ketone-Dipstick Negative (Negative); Leukocyte Esterase-Dipstick Negative /ul (Negative); Nitrite-Dipstick Negative (Negative); Occult Blood-Urine Negative /ul (Negative); Protein-Dipstick Negative (Negative); Urine Bilirubin Dipstick Negative (Negative); Urine Clarity Clear (Clear); Urine Urobilinogen Normal (Normal)
== END | disposition home or self-care (01) ==
LOC: LAB 09:03
PROVIDERS: PCP Family Medicine; Visit Provider Family Medicine
DX: I10 Essential (primary) hypertension (principal)
CPT/HCPCS: 36415; 80053; 80061; 81001; 84443; 85027

== ENCOUNTER 2023-04-01 08:30 | Day surgery (SDC) | payer OTHER, MEDICARE, SELFPAY ==
[2023-04-01] VITALS (8 sets, daily range): BP systolic 84–118; BP diastolic 57–80; PULSE 56–62; RESP 16; TEMP 36.3–36.4; O2SAT 94–98; BMI 29.1
--- NOTE | 2023-04-01 | COLBX_PTH ---
PATIENT: ROSSY BRYAN LOC: [facility] U#:[id number] AGE/SX: 67/M ROOM: RE04/01/[address]: Dr. Porfirio Peraza MD : 1955 BED: DIS: 04/01/2023 SPEC #: [id number] RECD: 04/01/23 11:14 STATUS: NLEY KAM #: [id number] CONCHIS: 04/01/23 00:[address]: Porfirio Peraza DEPT: SURGICAL PATHOLOGY RECD BY: Tay Mahoney ENTERED: 04/01/23 12:11 SP TYPE: COLON BX OTHR DR: Dr. Daly Isaac MD Tissues: Cecum, NOS Procedures: Surgery Specimen Level IV HEADER OPERATION: Colonoscopy (MAC), polypectomy PRE-OP DIAGNOSIS: History of colon polyps TISSUE SUBMITTED: Cecal polyp MICROSCOPIC DIAGNOSIS Cecal polyp, biopsy: Fragments of tubular adenoma. AM:nadia 04/04/2023 MICROSCOPIC DESCRIPTION Slides are reviewed. GROSS DESCRIPTION Received in fixative is one container labeled with the patient's name and designated cecal polyp. The specimen consists of multiple irregular fragments of light brewster soft tissue that in aggregate measure 1.0 x 0.5 x 0.1 cm. The specimen is totally submitted in one cassette. / SJ:nadia 04/01/2023 TC:5 CPT: 66383
[2023-04-01] MEDS: Lactated Ringers 1,000 ML 15 ML IV (08:58)
--- NOTE | 2023-04-01 09:37 | PCM.HP.BLA ---
History and Physical Date of Admission: 04/01/23 Intake Vital Signs ? 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 Porfirio Peraza MD) Bilat ing hernia Gout History of colon polyps Recovering alcoholic Screen for colon cancer URI, acute Ventral hernia Surgical History?(Updated 02/10/23 @ 13:51 by Marina Masters) History of bilateral inguinal hernia repair (~2018) History of colonoscopy (~2017) History of tonsillectomy History of ventral hernia repair (~11/10/20) Family History? Aunt Heart diseaseUncle Heart diseaseMother Hypertension CVA (cerebral vascular accident) Social History? Smoking Status:? Former smoker alcohol intake:? former details:? recovering HPI HPI HPI: Patient is a 67-year-old male with history of tubular adenoma of the colon 5 years ago.? He denies any abdominal pain or blood in the stool.? Has no other complaints. ROS General General: Yes weight change; No appetite, fatigue, colon cancer, breast cancer or weakness HEENT HEENT: No difficulty swallowing, eye injury, eye surgery, swollen glands or hoarseness Endo Endocrine: No thyroid disease, diabetes mellitus, thyroid cancer, Hair loss, heat intolerance or cold intolerance Skin Skin: No rash or changing moles Breast Breast: No left breast lump, right breast lump, nipple discharge, breast pain, abnormal mammogram, abnormal US or breast enlargement Musc Musculoskeletal: Yes gout; No back problems, arthritis, rheumatoid arthritis or joint pain Cardio Cardiovascular: Yes high blood pressure; No murmur, pacemaker, heart disease, atrial fibrillation, heart attack, heart stent, palpitations, shortness of breat with exertion or chest pain Psych Psychiatric: No depression, anxiety or hearing voices Resp Respiratory: No shortness of breath, No sleep apnea, No cough, No COPD, No asthma, No emphysema and No wheezing Gastro Gastrointestinal: No abdominal pain, No nausea or vomiting, No diarrhea, No constipation, No blood in stool, No acid reflux, No hemorrhoids, No ulcers, No gallbladder problem and No black,tarry stools See Hematologic: No blood thinners, No blood disorders, No bleeding, No anemia and No blood clots Neuro Neurologic: No system reviewed and no additional complaints, except as documented, No as per HPI, No abnormal gait, No abnormal hearing, No abnormal movements, No abnormal speech, No behavioral changes, No burning sensations, No confusion, No convulsions, No disequilibrium, No dizziness, No localized weakness, No frequent falls, No headache(s), No lack of coordination, No loss of vision, No memory loss, No numbness, No other visual disturbances, No radicular pain, No restless legs, No sensory deficit, No syncope, No tingling, No tremor(s), No weakness and No other Exam Const General: cooperative Orientation: alert and oriented x3 HENMT Head: normal to inspection Neck Neck: normal visual inspection and full ROM Chest Chest palpation & inspection: normal inspection of the chest Resp Effort & Inspection: normal respiratory effort Auscultation: clear to auscultation bilaterally Cardio Rate: regular rate Rhythm: regular rhythm GI Inspection: non-distended Palpation: soft and nontender Skin General: no rashes or lesions noted Neuro General: patient alert and patient oriented x3 Extrem General: full ROM Psych Appearance: grossly normal Mental Status: mental status grossly normal Assessment and Plan Assessment and Plan (1) History of colon polyps: ?Status:?Acute ?Plan: Patient has a history of tubular adenoma 5 years ago and is due for surveillance colonoscopy.? I explained endoscopy in detail to the patient.? I explained the risks including but not limited to stroke or heart attack with anesthesia, perforation of the GI tract, bleeding, infection.? I explained that any of these could necessitate further emergency surgery.? The patient understands and all questions were answered sufficiently.? The patient wishes to proceed with procedure. Porfirio Peraza MD Pager: [facility] [address] [place] [address], [address] [place] [address] Office: I have examined the patient and the H&P has been reviewed. There are no clinical changes since date of exam.
--- NOTE | 2023-04-01 10:09 | OP.COLON_ITS ---
Patient Name: John Crowley Procedure Date: 04/01/2023 9:42 AM Date of : 1955 Age: 67 Procedure: Colonoscopy Indications: High risk colon cancer surveillance: Personal history of colonic polyps Providers: Porfirio Peraza MD Medicines: Monitored Anesthesia Care Patient Profile: This is a 67 year old male. Refer to note in patient chart for documentation of history and physical. Last Colonoscopy: 5 years ago. Complications: No immediate complications. Procedure: Pre-Anesthesia Assessment: - Prior to the procedure, a History and Physical was performed, and patient medications and allergies were reviewed. The patient's tolerance of previous anesthesia was also reviewed. The risks and benefits of the procedure and the sedation options and risks were discussed with the patient. All questions were answered, and informed consent was obtained. Prior Anticoagulants: The patient has taken no previous anticoagulant or antiplatelet agents. After reviewing the risks and benefits, the patient was deemed in satisfactory condition to undergo the procedure. After I obtained informed consent, the scope was passed under direct vision. Throughout the procedure, the patient's blood pressure, pulse, and oxygen saturations were monitored continuously. The colonoscope was introduced through the anus and advanced to the cecum, identified by appendiceal orifice and ileocecal valve. The colonoscopy was performed without difficulty. The patient tolerated the procedure well. The quality of the bowel preparation was good. Scope In: 9:53:51 AM Scope Withdrawal Time 0 hours 7 minutes 1 second Scope Out: 10:05:14 AM Total Procedure Duration Time 0 hours 11 minutes 23 seconds Findings: A small polyp was found in the cecum. The polyp was removed with a hot snare. Resection and retrieval were complete. The entire examined colon appeared normal on direct and retroflexion views. Impression: - One small polyp in the cecum, removed with a hot snare. Resected and retrieved. - The entire examined colon is normal on direct and retroflexion views. Recommendation: - Discharge patient to home. - Resume previous diet. - Continue present medications. - Await pathology results. - Repeat colonoscopy in 5 years for surveillance. Procedure Code(s): --- Professional --- 92205, Colonoscopy, flexible; with removal of tumor(s), polyp(s), or other lesion(s) by snare technique Diagnosis Code(s): --- Professional --- Z86.010, Personal history of colonic polyps D12.0, Benign neoplasm of cecum CPT copyright 2017 [employer]. All rights reserved. The codes documented in this report are preliminary and upon gate attendant review may be revised to meet current compliance requirements. Porfirio Peraza MD 04/01/2023 10:08:39 AM This report has been signed electronically. Number of Addenda: 0 Note Initiated On: 04/01/2023 9:42 AM
--- NOTE | 2023-04-01 10:10 | OP.CCLET_ITS ---
04/01/2023 Daly Isaac [place] [id number] [place] [address] Re : Colonoscopy procedure for John Crowley Dear Dr. Isaac This procedure was performed on Saturday, April 01, 2023. My impressions and recommendations are as follows: Impressions : - One small polyp in the cecum, removed with a hot snare. Resected and retrieved. - The entire examined colon is normal on direct and retroflexion views. Recommendations : - Discharge patient to home. - Resume previous diet. - Continue present medications. - Await pathology results. - Repeat colonoscopy in 5 years for surveillance. My findings are described in the full procedure note, which is enclosed. If I can be of further assistance, please feel free to contact me at Doctor phone number(s): , Work: . Sincerely, Porfirio Peraza MD 04/01/2023 10:08:39 AM This report has been signed electronically.
== END 2023-04-01 11:08 | disposition home or self-care (01) ==
LOC: EN 08:31 → AC 08:32
PROVIDERS: PCP Family Medicine; Referring Provider Family Medicine; Visit Provider Surgery
PROC: 0DJD8ZZ Inspection of Lower Intestinal Tract, Via Natural or Artificial Opening Endoscopic (ICD-10-PCS; CPT 45378; principal; 2023-04-01 09:25)
DX: Z12.11 Encounter for screening for malignant neoplasm of colon (principal); D12.0 Benign neoplasm of cecum; Z87.891 Personal history of nicotine dependence; Z86.010 Personal history of colon polyps; Z87.19 Personal history of other diseases of the digestive system; I10 Essential (primary) hypertension; Z79.899 Other long term (current) drug therapy
CPT/HCPCS: 45385; 88305; J7120; J2405

== ENCOUNTER → 2023-08-11 | Outpatient (CLI) | payer OTHER, MEDICARE, SELFPAY ==
[2023-08-11 17:42] LABS: T4 Free Direct 0.78 ng/dL (0.76-1.46); Thyroid Stim Hormone (TSH) 5.08 uIU/mL (0.358-3.74)
== END | disposition home or self-care (01) ==
LOC: LAB 16:52
PROVIDERS: PCP Family Medicine; Referring Provider Family Medicine; Visit Provider Family Medicine
DX: I10 Essential (primary) hypertension (principal); R79.89 Other specified abnormal findings of blood chemistry
CPT/HCPCS: 36415; 84439; 84443

== ENCOUNTER → 2024-04-07 | Outpatient (CLI) | payer OTHER, MEDICARE, SELFPAY ==
[2024-04-07 12:02] LABS: Hematocrit 48.5 % (40-54); Hemoglobin 16.2 g/dL (13.0-16.5); Mean Corp Hgb Conc 33.4 g/dL (32-36); Mean Corpuscular Volume 86.8 fL (80-94); Mean Platelet Vol. 8.8 fl (6.2-12.0); Platelet Count 194 K/mm3 (150-450); RBC Distribution Width CV 12.1 % (11.6-14.6); RBC Distribution Width SD 38.5 fl (35.1-43.9); Red Blood Count 5.59 M/mm3 (4.6-6.2); White Blood Count 8.9 K/mm3 (4.4-11.0)
[2024-04-07 12:28] LABS: ALB/GLOB Ratio 1.2 RATIO (0.9-2.4); AST(SGOT) 28 U/L (15-37); Alanine Aminotransfer ALT/SGPT 40 U/L (16-61); Alkaline Phosphatase 56 U/L (45-117); Anion Gap 4 (5-15); BUN 8 mg/dL (7-18); BUN/Creat Ratio 8.6 RATIO (10-20); Calcium,Total 8.2 mg/dL (8.5-10.1); Chloride 107 mmol/L (98-107); Creatinine, Serum 0.94 mg/dL (0.70-1.30); EST Glomerular Filtration Rate 86 mL/min (>60); Est Glom Filt Rate - Afr Amer 104 mL/min (>60); Globulin 2.4 g/dL (2.2-4.2); Glucose 87 mg/dL (74-106); Potassium 4.2 mmol/L (3.5-5.1); Protein, Total 5.4 g/dL (6.4-8.2); Sodium Level 136 mmol/L (136-145); Thyroid Stim Hormone (TSH) 5.23 uIU/mL (0.358-3.74)
== END | disposition home or self-care (01) ==
LOC: LAB 10:36
PROVIDERS: PCP Family Medicine; Referring Provider Family Medicine; Visit Provider Family Medicine
DX: I10 Essential (primary) hypertension (principal); R79.89 Other specified abnormal findings of blood chemistry
CPT/HCPCS: 36415; 80053; 84443; 85027

== ENCOUNTER → 2025-09-21 | Outpatient (CLI) | payer MEDICARE, OTHER, SELFPAY ==
--- OUTSIDE RECORDS SUMMARY | 2025-09-21 09:08 | XMS RPT_ITS | CCD ---
Author Organization [facility] Inform ion Partnership [facility] Care Team Providers Care Strategic Partnership Representative Name Role Phone Dr. Daly Isaac Primary Care Provider Dr. Daly Isaac Referring Provider [phone] Dr. Porfirio Peraza Attending Provider [phone] Dr. Porfirio Peraza Other Provider Daly Isaac Referring Unavailable Daly Isaac Primary Care Unavailable Daly Isaac Attending Unavailable Daly Isaac Referring Unavailable Daly Isaac Primary Care Unavailable Daly Isaac Attending Unavailable Medications Current Medications Medication Drug Class(es) Dates Sig (Normalized) Sig (Original) lisinopril 10 mg oral tablet (2 sources) Angiotensin Converting Enzyme Inhibitor Start: 02-10-2023 take 10 mg by mouth once daily Lisinopril Active 10 MG PO DAILY February 10, 2023 12:00am Completed/Discontinued Medications Medication Drug Class(es) Dates Sig (Normalized) Sig (Original) acetaminophen 325 mg / oxyCODONE hydrochloride 5 mg oral tablet (6 sources) Opioid Agonist Start: 11-10-2020 End: 11-15-2020 take 1 tablet by mouth every six hours as needed Oxycodone-Acetamino phen Discontinued 1 - 2 TABLET PO EVERY 6 HOURS NEEDED 40 5 November 10, 2020 November 15, 2020 1:03am Start: 09-17-2019 End: 10-01-2019 take 1 tablet by mouth every four hours as needed Oxycodone-Acetaminophen Discontinued 1 TABLET PO EVERY 4 HOURS NEEDED 10 7 September 17, 2019 October 01, 2019 10:22am aspirin 81 mg delayed release oral tablet (3 sources) Platelet Aggregation Inhibitor, Nonsteroidal Anti-inflammatory Drug Start: 04-21-2018 End: 07-26-2019 take 81 mg by mouth once daily Aspirin Discontinued 81 MG PO DAILY April 21, 2018 12:00am July 26, 2019 2:23pm docusate sodium 100 mg oral capsule (6 sources) Start: 10-13-2020 End: 02-10-2023 Docusate Sodium Discontinued 100 MG PO NEEDED November 03, 2020 10:40am February 10, 2023 1:54pm Problems Problem Classification Problem Date Documented Da te Episodic/Chronic Abdominal hernia (6 sources) Hernia of anterior abdominal wall; Translations: [Ventral hernia without obstruction or gangrene] 12-08-2020 Episodic Essential hypertension (1 source) Essential (primary) hypertension; Translations: [Essential (primary) hypertension] Onset: 04-18-2024 Chronic Other and unspecified benign neoplasm (2 sources) History of polyp of colon; Translations: [Personal history of colonic polyps] 02-10-2023 Episodic Other and unspecified benign neoplasm (1 source) Personal history of colonic polyps; Translations: [Personal history of colonic polyps] 02-10-2023 Episodic Other screening for suspected conditions (not mental disorders or infectious disease) (3 sources) Patient encounter status; Translations: [Encounter for screening for malignant neoplasm of colon] 12-08-2020 Episodic Other upper respiratory infections (3 sources) Acute upper respiratory infection; Translations: [Acute upper respiratory infection, unspecified] 12-08-2020 Episodic Results Test Name Value Interpretation Reference Range Facility CBC-Complete Blood Cnt No Di ffon 04-07-2024 Erythrocyte distribution width (RBC) [Ratio] 12.1 % Normal 11.6-14.6 [facility] Comment on above: Performed By: #### L [id number], L100.0500, [id number] #### [facility] [address] [place], [address] Hematocrit (Bld) [Volume fraction] 48.5 % Normal 40-54 [facility] Comment on above: Performed By: #### L [id number], L100.0500, [id number] #### [facility] [address] [place], [address] Hemoglobin (Bld) [Mass/Vol] 16.2 g/dL Normal 13.0-16.5 [facility] Comment on above: Performed By: #### L [id number], L100.0500, [id number] #### [facility] [address] [place], [address] MCH (RBC) [Entitic mass] 29.0 pg Normal 27.0-32.0 [facility] Comment on above: Performed By: #### L [id number], L100.0500, [id number] #### [facility] [address] [place], [address] MCHC (RBC) [Mass/Vol] 33.4 g/dL Normal 32-36 [facility] Comment on above: Performed By: #### L [id number], L100.0500, [id number] #### [facility] [address] [place], [address] MCV (RBC) [Entitic vol] 86.8 fL Normal 80-94 [facility] Comment on above: Performed By: #### L [id number], L100.0500, [id number] #### [facility] [address] [place], [address] Platelet mean volume (Bld) [Entitic vol] 8.8 fL Normal 6.2-12.0 [facility] Comment on above: Performed By: #### L [id number], L100.0500, [id number] #### [facility] [address] [place], [address] Platelets (Bld) [#/Vol] 194 10*3/uL Normal 150-450 [facility] Comment on above: Performed By: #### L [id number], L100.0500, [id number] #### [facility] [address] [place], [address] RBC (Bld) [#/Vol] 5.59 10*6/uL Normal 4.6-6.2 [facility] Comment on above: Performed By: #### L [id number], L100.0500, [id number] #### [facility] [address] [place], [address] RDW SD 38.5 fl Normal 35.1-43.9 [facility] Comment on above: Performed By: #### L [id number], L100.0500, [id number] #### [facility] [address] [place], [address] WBC (Bld) [#/Vol] 8.9 10*3/uL Normal 4.4-11.0 [facility] Comment on above: Performed By: #### L [id number], L100.0500, [id number] #### [facility] [address] [place], [address] Comprehensive Metabolic Prof [facility] 04-07-2024 Albumin [Mass/Vol] 3.0 g/dL Low 3.2-5.0 [facility] Comment on above: Performed By: #### L [id number], L100.0500, [id number] #### [facility] [address] [place], [address] Albumin/Globulin [Mass ratio] 1.2 {ratio} Normal 0.9-2.4 [facility] Comment on above: Performed By: #### L [id number], L100.0500, [id number] #### [facility] [address] [place], [address] ALK P 56 U/L Normal 45-117 [facility] Comment on above: Performed By: #### L [id number], L100.0500, [id number] #### [facility] [address] [place], [address] ALT [Catalytic activity/Vol] 40 U/L Normal 16-61 [facility] Comment on above: Performed By: #### L [id number], L100.0500, [id number] #### [facility] [address] [place], [address] AST [Catalytic activity/Vol] 28 U/L Normal 15-37 [facility] Comment on above: Performed By: #### L [id number], L100.0500, [id number] #### [facility] [address] [place], [address] Bilirubin [Mass/Vol] 0.90 mg/dL Normal 0.20-1.00 [facility] Comment on above: Result Comment: For patients on eltrombopag therapy, use of Dimension [place] TBIL is not recommended. Performed By: #### L [id number], L100.0500, [id number] #### [facility] [address] [place], [address] BUN/CRE 8.6 RATIO Low 10-20 [facility] Comment on above: Performed By: #### L [id number], L100.0500, [id number] #### [facility] [address] [place], [address] CA,Total 8.2 mg/dL Low 8.5-10.1 [facility] Comment on above: Performed By: #### L [id number], L100.0500, [id number] #### [facility] [address] [place], [address] Chloride [Moles/Vol] 107 mmol/L Normal 98-107 [facility] Comment on above: Performed By: #### L [id number], L100.0500, [id number] #### [facility] [address] [place], [address] CO2 [Moles/Vol] 25.0 mmol/L Normal 21.0-32.0 [facility] Comment on above: Performed By: #### L [id number], L100.0500, [id number] #### [facility] [address] [place], [address] Creatinine [Mass/Vol] 0.94 mg/dL Normal 0.70-1.30 [facility] Comment on above: Result Comment: The validity of the calculated GFR GFRAA in patients over 70 years has not been determined. Clinical correlation is essential. Performed By: #### L [id number], L100.0500, [id number] #### [facility] [address] [place], [address] EST GFR - AA 104 mL/min Normal >60 [facility] Comment on above: Result Comment: Afri can [place] GFR Calc Performed By: #### L [id number], L100.0500, [id number] #### [facility] [address] [place], [address] GAP 4 Low 5-15 [facility] Comment on above: Performed By: #### L [id number], L100.0500, [id number] #### [facility] [address] [place], [address] GFR/1.73 sq M.predicted among non-blacks MDRD (S/P/Bld) [Vol rate/Area] 86 mL/min/{1.73_m2} Normal >60 [facility] Comment on above: Result Comment: Non- GFR Calc Performed By: #### L [id number], L100.0500, [id number] #### [facility] [address] [place], [address] Globulin (S) [Mass/Vol] 2.4 g/dL Normal 2.2-4.2 [facility] Comment on above: Performed By: #### L [id number], L100.0500, [id number] #### [facility] [address] [place], [address] Glucose [Mass/Vol] 87 mg/dL Normal 74-106 [facility] Comment on above: Performed By: #### L [id number], L100.0500, [id number] #### [facility] [address] [place], [address] Potassium [Moles/Vol] 4.2 mmol/L Normal 3.5-5.1 [facility] Comment on above: Performed By: #### L [id number], L100.0500, [id number] #### [facility] [address] [place], [address] Sodium [Moles/Vol] 136 mmol/L Normal 136-145 [facility] Comment on above: Performed By: #### L [id number], L100.0500, [id number] #### [facility] [address] [place], [address] T PROT 5.4 g/dL Low 6.4-8.2 [facility] Comment on above: Performed By: #### L [id number], L100.0500, [id number] #### [facility] [address] [place], [address] Urea nitrogen [Mass/Vol] 8 mg/dL Normal 7-18 [facility] Comment on above: Performed By: #### L [id number], L100.0500, [id number] #### [facility] [address] [place], [address] Thyroid Stim Hormone (TSH)on 04-07-2024 TSH 5.23 uIU/mL High 0.358-3.74 [facility] Comment on above: Performed By: #### L [id number], L100.0500, [id number] #### [facility] [address] [place], [address] Laboratory - Chemistry and C hemistry - challengeOrdered By: Daly Isaac on 08-11-2023 Free T4 [Mass/Vol] 0.78 ng/dL 0.76-1.46 [facility] No Panel InformationOrdered By: Daly Isaac on 08-11-2023 Thyroid Stimulating Hormone (TSH) 5.08 uIU/mL 0.358-3.74 [facility] T4 Free Directon 08-11-2023 T4 FREE DIRECT 0.78 ng/dL Normal 0.76-1.46 [facility] Comment on above: Performed By: #### L 506.0400, [id number] #### [facility] [address] [place], [address] Thyroid Stim Hormone (TSH)on 08-11-2023 TSH 5.08 uIU/mL High 0.358-3.74 [facility] Comment on above: Performed By: #### L 506.0400, [id number] #### [facility] [address] [place], [address] Basophil percentageOrdered B y: Dr. sIaac on 01-15-2023 Basophil percentage 0 SEEN /hpf 0-5 [facility] Bilirubin [Mass/Vol] 1.10 mg/dL 0.20-1.00 [facility] Comment on above: For patients on eltr ombopag therapy, use of Dimension [place] TBIL is not recommended. Chloride [Moles/Vol] 106 mmol/L 98-107 [facility] Cholesterol [Mass/Vol] 151 mg/dL <200 [facility] Comment on above: <200 mg/dL Desirable 200-240 mg/dL Borderline >240 mg/dL High Risk Glucose [Mass/Vol] 91 mg/dL 74-106 [facility] Potassium [Moles/Vol] 4.2 mmol/L 3.5-5.1 [facility] Protein [Mass/Vol] 6.2 g/dL 6.4-8.2 [facility] Sodium [Moles/Vol] 137 mmol/L 136-145 [facility] Triglyceride [Mass/Vol] 103 mg/dL <199 [facility] Comment on above: The drugs N-Acetylcy steine and Metamizole may falsely depress this assay.Serum Triglycerides Reference Interval Normal <150 mg/dL Borderline high 150 - 199 mg/dL High 200 - 499 mg/dL Very High > or = 500 mg/dL WBC (Bld) [#/Vol] 7.3 10*3/uL 4.4-11.0 [facility] Bilirubin Test strip Ql (U)O rdered By: Dr. Isaac on 01-15-2023 Bilirubin Ql (U) Negative Negative [facility] Blood erythrocytes count (nu mber/volume)Ordered By: Dr. Isaac on 01-15-2023 RBC (Bld) [#/Vol] 6.02 10*6/uL 4.6-6.2 [facility] Blood hemoglobin measurement (mass/volume)Ordered By: Dr. Isaac on 01-15-2023 Hemoglobin (Bld) [Mass/Vol] 17.4 g/dL 13.0-16.5 [facility] Blood platelet mean volumeOr dered By: Dr. Isaac on 01-15-2023 Platelet mean volume (Bld) [Entitic vol] 8.7 fL 6.2-12.0 [facility] Determination of erythrocyte mean corpuscular volume (MCV)Ordered By: Dr. Isaac on 01-15-2023 MCV (RBC) [Entitic vol] 85.4 fL 80-94 [facility] Hematocrit Auto (Bld) [Volum e fraction]Ordered By: Dr. Isaac on 01-15-2023 Hematocrit (Bld) [Volume fraction] 51.4 % 40-54 [facility] Ketones Test strip Ql (U)Ord ered By: Dr. Isaac on 01-15-2023 Ketones Ql (U) Negative Negative [facility] Laboratory - Chemistry and C hemistry - challengeOrdered By: Dr. Isaac on 01-15-2023 ALP [Catalytic activity/Vol] 58 U/L 45-117 [facility] ALT [Catalytic activity/Vol] 27 U/L 16-61 [facility] CO2 [Moles/Vol] 27.0 mmol/L 21.0-32.0 [facility] Globulin (S) [Mass/Vol] 3.0 g/dL 2.2-4.2 [facility] Urea nitrogen/Creatinine [Mass ratio] 8.3 mg/mg 10-20 [facility] - Hematology and Cell countsOrdered By: Dr. Isaac on 01-15-2023 Erythrocyte distribution width (RBC) [Entitic vol] 37.2 fL 35.1-43.9 [facility] Erythrocyte distribution width (RBC) [Ratio] 11.9 % 11.6-14.6 [facility] MCH (RBC) [Entitic mass] 28.9 pg 27.0-32.0 [facility] MCHC Auto (RBC) [Mass/Vol]Or dered By: Dr. Isaac on 01-15-2023 MCHC (RBC) [Mass/Vol] 33.9 g/dL 32-36 [facility] Mucus LM Ql (Urine sed)Order ed By: Dr. Isaac on 01-15-2023 Mucus Ql (Urine sed) 0 SEEN /hpf [facility] Nitrite Test strip Ql (U)Ord ered By: Dr. Isaac on 01-15-2023 Nitrite Ql (U) Negative Negative [facility] No Panel InformationOrdered By: Dr. Isaac on 01-15-2023 Estimated GFR (MDRD) Amer 87 mL/min >60 [facility] Comment on above: GFR Calc Estimated GFR (MDRD) Non-Af Amer 72 mL/min >60 [facility] Comment on above: Non- GFR Calc Thyroid Stimulating Hormone (TSH) 5.72 uIU/mL 0.358-3.74 [facility] Platelets bldOrdered By: Dr. Isaac on 01-15-2023 Platelets (Bld) [#/Vol] 220 10*3/uL 150-450 [facility] Protein Test strip Ql (U)Ord ered By: Dr. Isaac on 01-15-2023 Protein Ql (U) Negative Negative [facility] Serum or plasma albumin shaylee urement (mass/volume)Ordered By: Dr. Isaac on 01-15-2023 Albumin [Mass/Vol] 3.2 g/dL 3.2-5.0 [facility] Serum or plasma albumin/glob ulin mass ratioOrdered By: Dr. Isaac on 01-15-2023 Albumin/Globulin [Mass ratio] 1.1 {ratio} 0.9-2.4 [facility] Serum or plasma calcium shaylee urement (mass/volume)Ordered By: Dr. Isaac on 01-15-2023 Calcium [Mass/Vol] 8.6 mg/dL 8.5-10.1 [facility] Serum or plasma cholesterol in HDL measurement (mass/volume)Ordered By: Dr. Isaac on 01-15-2023 Cholesterol in HDL [Mass/Vol] 38 mg/dL >40 [facility] Comment on above: The drugs N-Acetylcy steine and Metamizole may falsely depress this assay. Reference Range HDL <40 mg/dL Low HDL Cholesterol HDL >or= 60 mg/dL High HDL Cholesterol Serum or plasma cholesterol in VLDL measurement (mass/volume)Ordered By: Dr. Isaac on 01-15-2023 Cholesterol in VLDL [Mass/Vol] 21 mg/dL 5-40 [facility] Serum or plasma creatinine m easurement (mass/volume)Ordered By: Dr. Isaac on 01-15-2023 Creatinine [Mass/Vol] 1.09 mg/dL 0.70-1.30 [facility] Comment on above: The validity of the calculated GFR & GFRAA in patients over 70 years has not been determined. Clinical correlation is essential. Serum or plasma low density lipoprotein (LDL) cholesterol measurement (mass/volume)Ordered By: Dr. Isaac on 01-15-2023 Cholesterol in LDL [Mass/Vol] 92 mg/dL 0-130 [facility] Serum or plasma urea nitroge n measurement (mass/volume)Ordered By: Dr. Isaac on 01-15-2023 Urea nitrogen [Mass/Vol] 9 mg/dL 7-18 [facility] Squamous epithelial cells de tection in urine sediment by light microscopyOrdered By: Dr. Isaac on 01-15-2023 Epithelial cells.squamous LM Ql (Urine sed) 0 SEEN /hpf 0-5 [facility] Thin prep Papanicolaou smear with manual screeningOrdered By: Dr. Isaac on 01-15-2023 Thin prep Papanicolaou smear with manual screening 22 U/L 15-37 [facility] Thin prep Papanicolaou smear with manual screening 4 5-15 [facility] Urine blood detectionOrdered By: Dr. Isaac on 01-15-2023 RBC Ql (U) Negative Negative [facility] RBC Ql (U) 0 SEEN /hpf 0-5 [facility] Urine clarityOrdered By: Dr. Isaac on 01-15-2023 Clarity (U) Clear Clear [facility] Urine color determinationOrd ered By: Dr. Isaac on 01-15-2023 Color (U) Yellow Yellow [facility] Urine glucose detectionOrder ed By: Dr. Isaac on 01-15-2023 Glucose Ql (U) Normal mg/dl Normal [facility] Urine leukocyte esterase det ection by dipstickOrdered By: Dr. Isaac on 01-15-2023 Leukocyte esterase Test strip Ql (U) Negative Negative [facility] Urine pHOrdered By: Dr. Dontae reid on 01-15-2023 pH (U) 7.0 [pH] 5.0 - 8.0 [facility] Urine sediment bacteria coun t by microscopy (number/high power field)Ordered By: Dr. Isaac on 01-15-2023 Bacteria LM.HPF (Urine sed) [#/Area] 0 /[HPF] None Seen [facility] Urine specific gravity measu rementOrdered By: Dr. Isaac on 01-15-2023 Specific gravity (U) [Rel density] 1.010 1.002-1.030 [facility] Urobilinogen Auto test strip Ql (U)Ordered By: Dr. Isaac on 01-15-2023 Urobilinogen Ql (U) Normal mg/dl Normal [facility] Vital Signs Date Time Vital Sign Value Performing Clinician Faci lity 04-01-2023 10:35-0400 Body temperature 97.6 [degF] Dr. Daly Isaac Work Phone: [facility] 04-01-2023 10:35-0400 Diastolic blood pressure 66 mm[Hg] Dr. Daly Isaac Work Phone: [facility] 04-01-2023 10:35-0400 Heart rate 60 /min Dr. Daly Isaac Work Phone: [facility] 04-01-2023 10:35-0400 Respiratory rate 16 /min Dr. Daly Isaac Work Phone: [facility] 04-01-2023 10:35-0400 SaO2% (BldA) [Mass fraction] 98 % Dr. Daly Isaac Work Phone: [facility] 04-01-2023 10:35-0400 Systolic blood pressure 97 mm[Hg] Dr. Daly Isaac Work Phone: [facility] 04-01-2023 08:58-0400 Body height 180.[address] Daly Isaac Work Phone: [facility] 04-01-2023 08:58-0400 Body mass index (BMI) [Ratio] 29.1 kg/m2 Dr. Daly Isaac Work Phone: [facility] 04-01-2023 08:58-0400 Body weight 94.[address] Daly Isaac Work Phone: [facility] 02-10-2023 13:52-0400 Body mass index (BMI) [Ratio] 31 kg/m2 Dr. Daly Isaac Work Phone: [facility] 02-10-2023 13:52-0400 Body temperature 97.4 [degF] Dr. Daly Isaac Work Phone: [facility] 02-10-2023 13:52-0400 Body weight 100.[address] Daly Isaac Work Phone: [facility] 02-10-2023 13:52-0400 Diastolic blood pressure 67 mm[Hg] Dr. Daly Isaac Work Phone: [facility] 02-10-2023 13:52-0400 Heart rate 79 /min Dr. Daly Isaac Work Phone: [facility] 02-10-2023 13:52-0400 Respiratory rate 18 /min Dr. Daly Isaac Work Phone: [facility] 02-10-2023 13:52-0400 SaO2% (BldA) [Mass fraction] 95 % Dr. Daly Isaac Work Phone: [facility] 02-10-2023 13:52-0400 Systolic blood pressure 101 mm[Hg] Dr. Daly Isaac Work Phone: [facility] Encounters Encounter Date Encounter Type Care Provider Facility Start: 04-07-2024 End: 04-07-2024 ambulatory Daly Isaac Facility:[facility] Start: 08-11-2023 End: 08-11-2023 ambulatory [facility] Work Phone: Start: 08-11-2023 End: 08-11-2023 Patient encounter procedure [facility] Work Phone: Start: 08-11-2023 End: 08-11-2023 ambulatory Daly Isaac Facility:[facility] Start: 04-01-2023 Non-patient / Non-visit Dr. Greg Isaac Work Phone: [facility] Start: 04-01-2023 End: 04-01-2023 Admission to same day surgery center Dr. Daly Isaac Work Phone: [facility] Start: 04-01-2023 End: 04-01-[address] Daly Isaac Work Phone: [facility] Work Phone: Start: 02-10-2023 End: 02-10-[address] Daly Isaac Work Phone: [facility] Start: 01-15-2023 End: 01-15-2023 ambulatory [facility] Work Phone: Start: 01-15-2023 End: 01-15-2023 Patient encounter procedure [facility] Procedures Date Procedure Procedure Detail Performing Clinician Start: 04-01-[address] Daly Isaac Work Phone: Plan of Treatment Date Care Activity Detail Author Start: 04-01-2023 Patient discharge [facility] Colonoscopy [facility] Patient referral [facility] Work Phone: Payers Date Payer Category Payer Medicare [id number] 2023 Private Health Insurance [facility] [id number] 2023 Self-pay [id number] Unknown ANTHEM/GERSTENSLAGER [id number] Unknown [facility] [id number] Unknown [id number] Unknown [id number] Social History Date Type Detail Facility Start: 12-09-2020 End: 03-31-2023 Tobacco smoking status NHIS Unknown if ever smoked [facility] Start: 11-03-[address] [facility] Start: 1955 Sex Assigned At Male [facility] Medical Equipment Procedure Code Equipment Code Equipment Origin al Text Equipment Identifier Dates Repair, hernia, ventral or umbilical, laparoscopic MESH,ECHO 15CM KASAAN FDA Start: 11-10-2020 Repair, hernia, ventral or umbilical, laparoscopic TACKER,SECURE STRAP FDA Start: 11-10-2020 Repair, hernia, ventral or umbilical, laparoscopic MESH,ECHO 15CM KASAAN FDA Start: 11-10-2020 Repair, hernia, ventral or umbilical, laparoscopic TACKER,SECURE STRAP FDA Start: 11-10-2020 Repair, hernia, ventral or umbilical, laparoscopic MESH,ECHO 15CM KASAAN FDA Start: 11-10-2020 Repair, hernia, ventral or umbilical, laparoscopic TACKER,SECURE STRAP FDA Start: 11-10-2020 MESH,SELF FIX [id number] FDA Start: 09-17-2019 MESH,SELF FIX [id number] FDA Start: 09-17-2019 MESH,SELF FIX [id number] FDA Start: 09-17-2019 MESH,SELF FIX [id number] FDA Start: 09-17-2019 MESH,SELF FIX [id number] FDA Start: 09-17-2019 MESH,SELF FIX [id number] FDA Start: 09-17-2019 Goals Date Patient Goal Desired Activity /State Mental Status Date Assessment Result Facility 04-01-2023 Cognitive function Voice/Name [facility] Work Phone: Procedure note 04-01-2023 Note Date & Type Note Facility 04-01-2023 Procedure note [facility] Procedure note 04-01-2023 Note Date & Type Note Facility 04-01-2023 Procedure note [facility] Evaluation note Note Date & Type Note Facility Evaluation note No assessment information availa ble [facility] Work Phone: Evaluation note Note Date & Type Note Facility Evaluation note Diagnosis Onset Date History of colon polyps acut e [facility] Work Phone: History and physical note Note Date & Type Note Facility History and physical note Note Date/Time April 01, 2023 9:[address] [facility] Medical Records Department [address] [place] [address] History & Physical Exam 04/01/23 0937 MR#: [id number] Acct: [id number] Name: ROSSY BRYAN Rep #:[id number] 1 : 1955 67 From: Porfirio mclean MD PCP: Dr. Daly Isaac MD Status:[place] [facility] [place]: [place] [address] History and Physical Date of Admission: 04/01/23 Intake Vital Signs ? 02/10/2313:52 Height 5 ft 11 in Weight: 222 lb 6 oz BMI 31.0 BP 101/67 Blood Pressure Location Rt brachial Position Sitting Respiration 18 Pulse 79 Pulse Source Monitor Temp 97.4 F L Temp Source Temporal Pulse Oximetry (%) 95 Oxygen Delivery Method room air Intake Visit Reasons:?Colonoscopy/Tubular Adenoma Chief Complaint: Colonoscopy Consult De Alcholizer Required: No Is patient in pain?: No Allergies No Known Allergies Allergy (Verified 02/10/23 13:53) Medications lisinopril 10 mg tablet 10 mg PO DAILY 02/10/23 [History Confirmed 02/10/23] PFSH Medical History?(Updated 02/10/23 @ 14:[address] Porfirio Peraza MD) Bilat ing hernia Gout History of colon polyps Recovering alcoholic Screen for colon cancer URI, acute Ventral hernia Surgical History?(Updated 02/10/23 @ 13:51 by Marina Masters) History of bilateral inguinal hernia repair (~2019) History of colonoscopy (~2018) History of tonsillectomy History of ventral hernia repair (~11/10/20) Family History? Aunt Heart diseaseUncle Heart diseaseMother Hypertension CVA (cerebral vascular accident) Social History? Smoking Status:? Former smoker alcohol intake:? former details:? recovering HPI HPI HPI: Patient is a 67-year-old male with history of tubular adenoma of the colon 5 years ago.? He denies any abdominal pain or blood in the stool.? Has no other complaints. ROS General General: Yes weight change; No appetite, fatigue, colon cancer, breast cancer or weakness HEENT HEENT: No difficulty swallowing, eye injury, eye surgery, swollen glands or hoarseness Endo Endocrine: No thyroid disease, diabetes mellitus, thyroid cancer, Hair loss, heat intolerance or cold intolerance Skin Skin: No rash or changing moles Breast Breast: No left breast lump, right breast lump, nipple discharge, breast pain, abnormal mammogram, abnormal US or breast enlargement Musc Musculoskeletal: Yes gout; No back problems, arthritis, rheumatoid arthritis or joint pain Cardio Cardiovascular: Yes high blood pressure; No murmur, pacemaker, heart disease, atrial fibrillation, heart attack, heart stent, palpitations, shortness of breat with exertion or chest pain Psych Psychiatric: No depression, anxiety or hearing voices Resp Respiratory: No shortness of breath, No sleep apnea, No cough, No COPD, No asthma, No emphysema and No wheezing Gastro Gastrointestinal: No abdominal pain, No nausea or vomiting, No diarrhea, No constipation, No blood in stool, No acid reflux, No hemorrhoids, No ulcers, No gallbladder problem and No black,tarry stools See Hematologic: No blood thinners, No blood disorders, No bleeding, No anemia and No blood clots Neuro Neurologic: No system reviewed and no additional complaints, except as documented, No as per HPI, No abnormal gait, No abnormal hearing, No abnormal movements, No abnormal speech, No behavioral changes, No burning sensations, No confusion, No convulsions, No disequilibrium, No dizziness, No localized weakness, No frequent falls, No headache(s), No lack of coordination, No loss ofvision, No memory loss, No numbness, No other visual disturbances, No radicular pain, No restless legs, No sensory deficit, No syncope, No tingling, No tremor(s), No weakness and No other Exam Const General: cooperative Orientation: alert and oriented x3 [facility] Head: normal to inspection Neck Neck: normal visual inspection and full ROM Chest Chest palpation & inspection: normal inspection of the chest Resp Effort & Inspection: normal respiratory effort Auscultation: clear to auscultation bilaterally Cardio Rate: regular rate Rhythm: regular rhythm GI Inspection: non-distended Palpation: soft and nontender Skin General: no rashes or lesions noted Neuro General: patient alert and patient oriented x3 Extrem General: full ROM Psych Appearance: grossly normal Mental Status: mental status grossly normal Assessment and Plan Assessment and Plan (1) History of colon polyps: ?Status:?Acute ?Plan: Patient has a history of tubular adenoma 5 years ago and is due for surveillancecolonoscopy.? I explained endoscopy in detail to the patient.? I explained the risks including but not limited to stroke or heart attack with anesthesia, perforation of the GI tract, bleeding, infection.? I explained that any of thesecould necessitate further emergency surgery.? The patient understands and all questions were answered sufficiently.? The patient wishes to proceed with procedure. Porfirio Peraza MD Pager: [facility] [address] [place] [address] [address], [address] [place] [address] Office: I have examined the patient and the H&P has been reviewed. There are no clinicalchanges since date of exam. 04/01/23 0937 <Electronically signed by Porfirio Peraza MD> Cosigner Signature (if applicable): CC: Dr. Porfirio Peraza MD; Dr. Dayl Isaac MD~ Signed [facility] Work Phone: Family History No Family History Records Found Relationship Condition Age at Onset Recorded Date/T hannah aunt Cardiac disease Unknown uncle Cardiac disease Unknown mother Hypertension Unknown Cerebrovascular accident (CVA) Unknown Advance Directives No Advanced Directives Records Found Advance Directive Response Recorded Date/ Time Living Will No November 03 10:40am Power of Backrest Assembler No November 03, 2020 10:40am Advance Directive Response Recorded Date/ Time Living Will No March 31, 2023 9:35am Power of Backrest Assembler No March 31 9:35am Chief Complaint and Reason for Visit Chief Complaint Colonoscopy/Tubular Adenoma Reason for Visit History of colon dima yps Summary Purpose Additional Source Comments Care Teams (unrecognized sec tion and content) Team Status: Active Member Role Status Dates Dr. Daly Isaac MD Family Provider Active Dr. Daly Isaac MD Primary Care Provider Active Team Status: Inactive Member Role Status Dates Dr. Daly Isaac MD Primary Care Provider, Attendin g Provider Active Team Status: Inactive Member Role Status Dates Dr. Daly Isaac MD Primary Care Provider, Referrin g Provider Active Dr. Porfirio Peraza MD Attending Provider Active Team Status: Active Member Role Status Dates Dr. Daly Isaac MD Primary Care Provider, Referrin g Provider Active Dr. Profirio Peraza MD Attending Provider, Other Provider Active Team Status: Inactive Member Role Status Dates Dr. Daly Isaac MD Primary Care Prov ider, Attending Provider, Referring Provider Active Goals (unrecognized section and content) Goals may be documented in a n alternate sectionGoals may be documented in an alternate section (unrecognized sect ion and content) No Status Records Found INFORMATION SOURCE (unrecogn ized section and content) DATE CREATED AUTHOR 04/20/2024 [facility] FOR RECORDS PERTAINING TO PATIENTS WHO ARE OR HAVE BEEN ENROLLED IN A CHEMICAL DEPENDENCY/SUBSTANCEABUSE PROGRAM, SOME INFORMATION MAY BE OMITTED. This clinical summary was aggregated from multiple sources. Caution should be exercised in using it in the provision of clinical care. This summary normalizes information from multiple sources, and as a consequence, information in this document may materially change the coding, format and clinical context of patient data. In addition, data may be omitted in some cases. CLINICAL DECISIONS SHOULD BE BASED ON THE PRIMARY CLINICAL RECORDS. [facility]. provides no warranty or guarantee of the accuracy or completeness of information in this document.
[2025-09-21 10:11] LABS: Hematocrit 51.7 % (40-54); Hemoglobin 17.6 g/dL (13.0-16.5); Mean Corp Hgb Conc 34.0 g/dL (32-36); Mean Corpuscular Volume 85.9 fL (80-94); Mean Platelet Vol. 8.7 fl (6.2-12.0); Platelet Count 227 K/mm3 (150-450); RBC Distribution Width CV 12.0 % (11.6-14.6); RBC Distribution Width SD 38.1 fl (35.1-43.9); Red Blood Count 6.02 M/mm3 (4.6-6.2); White Blood Count 8.4 K/mm3 (4.4-11.0)
[2025-09-21 10:56] LABS: AST(SGOT) 20 U/L (<=37); Alanine Aminotransfer ALT/SGPT 20 U/L (<=46); Albumin, Serum 3.7 g/dL (3.4-4.8); Alkaline Phosphatase 54 U/L (40-129); Anion Gap 7 (5-15); BUN 12 mg/dL (4-19); BUN/Creat Ratio 10.3 RATIO (10-20); Calcium,Total 9.1 mg/dL (7.6-11.0); Carbon Dioxide 28.2 mmol/L (21.0-32.0); Chloride 102 mmol/L (98-108); Cholesterol 166 mg/dL (<=200); Globulin 2.1 g/dL (2.2-4.2); Glucose 91 mg/dL (70-99); Low Density Lipoprotein Calc. 102 mg/dL; Potassium 4.8 mmol/L (3.3-5.1); Triglycerides 146 mg/dL; Very Low Density Lipoprotein 29 mg/dL (5-40); cholesterol:hdl ratio screen 4.40
== END | disposition home or self-care (01) ==
LOC: LAB 09:06
PROVIDERS: PCP Family Medicine; Referring Provider Family Medicine; Visit Provider Family Medicine
DX: I10 Essential (primary) hypertension (principal); E03.8 Other specified hypothyroidism
CPT/HCPCS: 36415; 80053; 80061; 84439; 84443; 85027

== ENCOUNTER → 2025-10-08 | Outpatient (CLI) | payer MEDICARE, SELFPAY ==
--- NOTE | 2025-10-08 07:04 | CT_ITS ---
PROCEDURE: LIMITED CHEST CT CARDIAC ONLY 10/08/2025 REASON FOR EXAM: ESSENTIAL (PRIMARY) HYPERTENSION TECHNIQUE: Procedure Code: [id number] Modality: CT Procedure: LIMITED CHEST CT CARDIAC ONLY Coronal and Sagittal reconstruction series were provided. CONTRAST: None. One or more dose reduction techniques were used (e.g., Automated exposure control, adjustment of the mA and/or kV according to patient size, use of iterative reconstruction technique). RADIATION DOSE SUMMARY: CTDlvol: 12.19 mGy DLP: 219 mGycm COMPARISON: None. FINDINGS: Coronary artery calcifications. Normal unenhanced main pulmonary artery and right and left pulmonary arteries. Normal bilateral peripheral pulmonary arteries. Normal thoracic aorta and visualized great vessels. There is no demonstrated aortic aneurysm. Normal heart and pericardium. Normal mediastinum. Normal hilar regions. Normal visualized trachea and bronchi. The visualized lungs are well expanded. Normal visualized pulmonary parenchyma. Normal pleura. Mild diffuse spondylosis. Normal visualized upper abdomen. CT/Limited Chest CT Cardiac Only IMPRESSION: Normal visualized lungs. Coronary artery calcifications. Reading Location: [place] [address]
--- OUTSIDE RECORDS SUMMARY | 2025-10-08 07:05 | XMS RPT_ITS | CCD ---
Author Organization [facility] Inform ion Partnership [facility] Care Team Providers Care International Travel Consultant Name Role Phone Dr. Daly Isaac Primary Care Provider Dr. Daly Isaac Referring Provider [phone] Dr. Porfirio Peraza Attending Provider Dr. Porfirio Peraza Other Provider Daly Isaac [...] width (RBC) [Ratio] 12.1 % Normal 11.6-14.6 [facility] Comment on above: Performed By: #### L 501.9520, L100.0500, L500.4050 #### [facility] [address] [place], [address] Hematocrit (Bld) [Volume fraction] 48.5 % Normal 40-54 [facility] Comment on above: Performed By: #### L [id number], L100.0500, L500.4050 #### [facility] [address] [place], [address] Hemoglobin (Bld) [Mass/Vol] 16.2 g/dL Normal 13.0-16.5 [facility] Comment on above: Performed By: #### L [id number], L100.0500, L500.4050 #### [facility] [address] [place], [address] MCH (RBC) [Entitic mass] 29.0 pg Normal 27.0-32.0 [facility] Comment on above: Performed By: #### L [id number], L100.0500, L500.4050 #### [facility] [address] [place], [address] MCHC (RBC) [Mass/Vol] 33.4 g/dL Normal 32-36 [facility] Comment on above: Performed By: #### L [id number], L100.0500, L500.4050 #### [facility] [address] [place], [address] MCV (RBC) [Entitic vol] 86.8 fL Normal 80-94 [facility] Comment on above: Performed By: #### L [id number], L100.0500, L500.4050 #### [facility] [address] [place], [address] Platelet mean volume (Bld) [Entitic vol] 8.8 fL Normal 6.2-12.0 [facility] Comment on above: Performed By: #### L [id number], L100.0500, L500.4050 #### [facility] [address] [place], [address] Platelets (Bld) [#/Vol] 194 10*3/uL Normal 150-450 [facility] Comment on above: Performed By: #### L [id number], L100.0500, L500.4050 #### [facility] [address] [place], [address] RBC (Bld) [#/Vol] 5.59 10*6/uL Normal 4.6-6.2 [facility] Comment on above: Performed By: #### L [id number], L100.0500, L500.4050 #### [facility] [address] [place], [address] RDW SD 38.5 fl Normal 35.1-43.9 [facility] Comment on above: Performed By: #### L [id number], L100.0500, L500.4050 #### [facility] [address] [place], [address] WBC (Bld) [#/Vol] 8.9 10*3/uL Normal 4.4-11.0 [facility] Comment on above: Performed By: #### L [id number], L100.0500, L500.4050 #### [facility] [address] [place], [address] Comprehensive Metabolic Prof [facility] 04-07-2024 Albumin [Mass/Vol] 3.0 g/dL Low 3.2-5.0 [facility] Comment on above: Performed By: #### L [id number], L100.0500, L500.4050 #### [facility] [address] [place], [address] Albumin/Globulin [Mass ratio] 1.2 {ratio} Normal 0.9-2.4 [facility] Comment on above: Performed By: #### L 501.9520, L100.0500, L500.4050 #### [facility] [address] [place], [address] ALK P 56 U/L Normal 45-117 [facility] Comment on above: Performed By: #### L [id number], L100.0500, L500.4050 #### [facility] [address] [place], [address] ALT [Catalytic activity/Vol] 40 U/L Normal 16-61 [facility] Comment on above: Performed By: #### L 501.9520, L100.0500, L500.4050 #### [facility] [address] [place], [address] AST [Catalytic activity/Vol] 28 U/L Normal 15-37 [facility] Comment on above: Performed By: #### L [id number], L100.0500, L500.4050 #### [facility] [address] [place], [address] Bilirubin [Mass/Vol] 0.90 mg/dL Normal 0.20-1.00 [facility] Comment on above: Result Comment: For patients on eltrombopag therapy, use of Dimension [place] TBIL is not recommended. Performed By: #### L 501.9520, L100.0500, L500.4050 #### [facility] [address] [place], [address] BUN/CRE 8.6 RATIO Low 10-20 [facility] Comment on above: Performed By: #### L [id number], L100.0500, L500.4050 #### [facility] [address] [place], [address] CA,Total 8.2 mg/dL Low 8.5-10.1 [facility] Comment on above: Performed By: #### L [id number], L100.0500, L500.4050 #### [facility] [address] [place], [address] Chloride [Moles/Vol] 107 mmol/L Normal 98-107 [facility] Comment on above: Performed By: #### L [id number], L100.0500, L500.4050 #### [facility] [address] [place], [address] CO2 [Moles/Vol] 25.0 mmol/L Normal 21.0-32.0 [facility] Comment on above: Performed By: #### L 501.9520, L100.0500, L500.4050 #### [facility] [address] [place], [address] Creatinine [Mass/Vol] 0.94 mg/dL Normal 0.70-1.30 [facility] Comment on above: Result Comment: The validity of the calculated GFR GFRAA in patients over 70 years has not been determined. Clinical correlation is essential. Performed By: #### L 501.9520, L100.0500, L500.4050 #### [facility] [address] [place], [address] EST GFR - AA 104 mL/min Normal >60 [facility] Comment on above: Result Comment: Afri can Citizen Of [place] GFR Calc Performed By: #### L [id number], L100.0500, L500.4050 #### [facility] [address] [place], [address] GAP 4 Low 5-15 [facility] Comment on above: Performed By: #### L [id number], L100.0500, L500.4050 #### [facility] [address] [place], [address] GFR/1.73 sq M.predicted among non-blacks MDRD (S/P/Bld) [Vol rate/Area] 86 mL/min/{1.73_m2} Normal >60 [facility] Comment on above: Result Comment: Non- GFR Calc Performed By: #### L 501.9520, L100.0500, L500.4050 #### [facility] [address] [place], [address] Globulin (S) [Mass/Vol] 2.4 g/dL Normal 2.2-4.2 [facility] Comment on above: Performed By: #### L [id number], L100.0500, L500.4050 #### [facility] [address] [place], [address] Glucose [Mass/Vol] 87 mg/dL Normal 74-106 [facility] Comment on above: Performed By: #### L 501.9520, L100.0500, L500.4050 #### [facility] [address] [place], [address] Potassium [Moles/Vol] 4.2 mmol/L Normal 3.5-5.1 [facility] Comment on above: Performed By: #### L 501.9520, L100.0500, L500.4050 #### [facility] [address] [place], [address] Sodium [Moles/Vol] 136 mmol/L Normal 136-145 [facility] Comment on above: Performed By: #### L 501.9520, L100.0500, L500.4050 #### [facility] [address] [place], [address] T PROT 5.4 g/dL Low 6.4-8.2 [facility] Comment on above: Performed By: #### L [id number], L100.0500, L500.4050 #### [facility] [address] [place], [address] Urea nitrogen [Mass/Vol] 8 mg/dL Normal 7-18 [facility] Comment on above: Performed By: #### L [id number], L100.0500, L500.4050 #### [facility] [address] [place], [address] Thyroid Stim Hormone (TSH)on 04-07-2024 TSH 5.23 uIU/mL High 0.358-3.74 [facility] Comment on above: Performed By: #### L 501.9520, L100.0500, L500.4050 #### [facility] [address] [place], [address] Laboratory - Chemistry and C hemistry - challengeOrdered By: Daly Isaac on 08-11-2023 Free T4 [Mass/Vol] 0.78 ng/dL 0.76-1.46 [facility] No Panel InformationOrdered By: Daly Isaac on 08-11-2023 Thyroid Stimulating Hormone (TSH) 5.08 uIU/mL 0.358-3.74 [facility] T4 Free Directon 08-11-2023 T4 FREE DIRECT 0.78 ng/dL Normal 0.76-1.46 [facility] Comment on above: Performed By: #### L 506.0400, L501.9520 #### [facility] [address] [place], [address] Thyroid Stim Hormone (TSH)on 08-11-2023 TSH 5.08 uIU/mL High 0.358-3.74 [facility] Comment on above: Performed By: #### L 506.0400, L501.9520 #### [facility] [address] [place], [address] Basophil percentageOrdered B y: Dr. Isaac on 01-15-2023 Basophil percentage 0 SEEN /hpf 0-5 [facility] Bilirubin [Mass/Vol] 1.10 mg/dL 0.20-1.00 [facility] Comment on above: For patients on eltr ombopag therapy, use of Dimension [place] TBIL is not recommended. Chloride [Moles/Vol] 106 mmol/L 98-107 [facility] Cholesterol [Mass/Vol] 151 mg/dL <200 [facility] Comment on above: <200 mg/dL Desirable 200-240 mg/dL Borderline >240 mg/dL High Risk Glucose [Mass/Vol] 91 mg/dL 74-106 [facility] Potassium [Moles/Vol] 4.2 mmol/L 3.5-5.1 [facility] Protein [Mass/Vol] 6.2 g/dL 6.4-8.2 [facility] Sodium [Moles/Vol] 137 mmol/L 136-145 [facility] Triglyceride [Mass/Vol] 103 mg/dL <199 [facility] Comment on above: The drugs N-Acetylcy steine and Metamizole may falsely depress this assay.Serum Triglycerides Reference Interval Normal <150 mg/dL Borderline high 150 - 199 mg/dL High 200 - 499 mg/dL Very High > or = 500 mg/dL WBC (Bld) [#/Vol] 7.3 10*3/uL 4.4-11.0 [facility] Bilirubin Test strip Ql (U)O rdered By: Dr. Isaac on 01-15-2023 Bilirubin Ql (U) Negative Negative [facility] Blood erythrocytes count (nu mber/volume)Ordered By: Dr. Isaac on 01-15-2023 RBC (Bld) [#/Vol] 6.02 10*6/uL 4.6-6.2 [facility] Blood hemoglobin measurement (mass/volume)Ordered By: Dr. Isaac on 01-15-2023 Hemoglobin (Bld) [Mass/Vol] 17.4 g/dL 13.0-16.5 [facility] Blood platelet mean volumeOr dered By: Dr. Isaac on 01-15-2023 Platelet mean volume (Bld) [Entitic vol] 8.7 fL 6.2-12.0 [facility] Determination of erythrocyte mean corpuscular volume (MCV)Ordered By: Dr. Isaac on 01-15-2023 MCV (RBC) [Entitic vol] 85.4 fL 80-94 [facility] Hematocrit Auto (Bld) [Volum e fraction]Ordered By: Dr. Isaac on 01-15-2023 Hematocrit (Bld) [Volume fraction] 51.4 % 40-54 [facility] Ketones Test strip Ql (U)Ord ered By: Dr. Isaac on 01-15-2023 Ketones Ql (U) Negative Negative [facility] Laboratory - Chemistry and C hemistry - challengeOrdered By: Dr. Isaac on 01-15-2023 ALP [Catalytic activity/Vol] 58 U/L 45-117 [facility] ALT [Catalytic activity/Vol] 27 U/L 16-61 [facility] CO2 [Moles/Vol] 27.0 mmol/L 21.0-32.0 [facility] Globulin (S) [Mass/Vol] 3.0 g/dL 2.2-4.2 [facility] Urea nitrogen/Creatinine [Mass ratio] 8.3 mg/mg 10-20 [facility] - Hematology and Cell countsOrdered By: Dr. Isaac on 01-15-2023 Erythrocyte distribution width (RBC) [Entitic vol] 37.2 fL 35.1-43.9 [facility] Erythrocyte distribution width (RBC) [Ratio] 11.9 % 11.6-14.6 [facility] MCH (RBC) [Entitic mass] 28.9 pg 27.0-32.0 [facility] MCHC Auto (RBC) [Mass/Vol]Or dered By: Dr. Isaac on 01-15-2023 MCHC (RBC) [Mass/Vol] 33.9 g/dL 32-36 [facility] Mucus LM Ql (Urine sed)Order ed By: Dr. Isaac on 01-15-2023 Mucus Ql (Urine sed) 0 SEEN /hpf [facility] Nitrite Test strip Ql (U)Ord ered By: Dr. Isaac on 01-15-2023 Nitrite Ql (U) Negative Negative [facility] No Panel InformationOrdered By: Dr. Isaac on 01-15-2023 Estimated GFR (MDRD) Amer 87 mL/min >60 [facility] Comment on above: GFR Calc Estimated GFR (MDRD) Non-Af Amer 72 mL/min >60 [facility] Comment on above: Non- GFR Calc Thyroid Stimulating Hormone (TSH) 5.72 uIU/mL 0.358-3.74 [facility] Platelets bldOrdered By: Dr. Isaac on 01-15-2023 Platelets (Bld) [#/Vol] 220 10*3/uL 150-450 [facility] Protein Test strip Ql (U)Ord ered By: Dr. Isaac on 01-15-2023 Protein Ql (U) Negative Negative [facility] Serum or plasma albumin shaylee urement (mass/volume)Ordered By: Dr. Isaac on 01-15-2023 Albumin [Mass/Vol] 3.2 g/dL 3.2-5.0 [facility] Serum or plasma albumin/glob ulin mass ratioOrdered By: Dr. Isaac on 01-15-2023 Albumin/Globulin [Mass ratio] 1.1 {ratio} 0.9-2.4 [facility] Serum or plasma calcium shaylee urement (mass/volume)Ordered By: Dr. Isaac on 01-15-2023 Calcium [Mass/Vol] 8.6 mg/dL 8.5-10.1 [facility] Serum or plasma cholesterol in HDL measurement (mass/volume)Ordered By: Dr. Isaac on 01-15-2023 Cholesterol in HDL [Mass/Vol] 38 mg/dL >40 [facility] Comment on above: The drugs N-Acetylcy steine and Metamizole may falsely depress this assay. Reference Range HDL <40 mg/dL Low HDL Cholesterol HDL >or= 60 mg/dL High HDL Cholesterol Serum or plasma cholesterol in VLDL measurement (mass/volume)Ordered By: Dr. Isaac on 01-15-2023 Cholesterol in VLDL [Mass/Vol] 21 mg/dL 5-40 [facility] Serum or plasma creatinine m easurement (mass/volume)Ordered By: Dr. Isaac on 01-15-2023 Creatinine [Mass/Vol] 1.09 mg/dL 0.70-1.30 [facility] Comment on above: The validity of the calculated GFR & GFRAA in patients over 70 years has not been determined. Clinical correlation is essential. Serum or plasma low density lipoprotein (LDL) cholesterol measurement (mass/volume)Ordered By: Dr. Isaac on 01-15-2023 Cholesterol in LDL [Mass/Vol] 92 mg/dL 0-130 [facility] Serum or plasma urea nitroge n measurement (mass/volume)Ordered By: Dr. Isaac on 01-15-2023 Urea nitrogen [Mass/Vol] 9 mg/dL 7-18 [facility] Squamous epithelial cells de tection in urine sediment by light microscopyOrdered By: Dr. Isaac on 01-15-2023 Epithelial cells.squamous LM Ql (Urine sed) 0 SEEN /hpf 0-5 [facility] Thin prep Papanicolaou smear with manual screeningOrdered By: Dr. Isaac on 01-15-2023 Thin prep Papanicolaou smear with manual screening 22 U/L 15-37 [facility] Thin prep Papanicolaou smear with manual screening 4 5-15 [facility] Urine blood detectionOrdered By: Dr. Isaac on 01-15-2023 RBC Ql (U) Negative Negative [facility] RBC Ql (U) 0 SEEN /hpf 0-5 [facility] Urine clarityOrdered By: Dr. Isaac on 01-15-2023 Clarity (U) Clear Clear [facility] Urine color determinationOrd ered By: Dr. Isaac on 01-15-2023 Color (U) Yellow Yellow [facility] Urine glucose detectionOrder ed By: Dr. Isaac on 01-15-2023 Glucose Ql (U) Normal mg/dl Normal [facility] Urine leukocyte esterase det ection by dipstickOrdered By: Dr. Isaac on 01-15-2023 Leukocyte esterase Test strip Ql (U) Negative Negative [facility] Urine pHOrdered By: Dr. Dontae reid on 01-15-2023 pH (U) 7.0 [pH] 5.0 - 8.0 [facility] Urine sediment bacteria coun t by microscopy (number/high power field)Ordered By: Dr. Isaac on 01-15-2023 Bacteria LM.HPF (Urine sed) [#/Area] 0 /[HPF] None Seen [facility] Urine specific gravity measu rementOrdered By: Dr. Isaac on 01-15-2023 Specific gravity (U) [Rel density] 1.010 1.002-1.030 [facility] Urobilinogen Auto test strip Ql (U)Ordered By: Dr. Isaac on 01-15-2023 Urobilinogen Ql (U) Normal mg/dl Normal [facility] Vital Signs Date Time Vital Sign Value Performing Clinician Faci lity 04-01-2023 10:35-0400 Body temperature 97.6 [degF] Dr. Daly Isaac Work Phone: [facility] 04-01-2023 10:35-0400 Diastolic blood pressure 66 mm[Hg] Dr. Daly Isaac Work Phone: [facility] 04-01-2023 10:35-0400 Heart rate 60 /min Dr. Daly Isaac Work Phone: [facility] 04-01-2023 10:35-0400 Respiratory rate 16 /min Dr. Daly Isaac Work Phone: [facility] 04-01-2023 10:35-0400 SaO2% (BldA) [Mass fraction] 98 % Dr. Daly Isaac Work Phone: [facility] 04-01-2023 10:35-0400 Systolic blood pressure 97 mm[Hg] Dr. Daly Isaac Work Phone: [facility] 04-01-2023 08:58-0400 Body height 180.[address] Daly Isaac Work Phone: [facility] 04-01-2023 08:58-0400 Body mass index (BMI) [Ratio] 29.1 kg/m2 Dr. Daly Isaac Work Phone: [facility] 04-01-2023 08:58-0400 Body weight 94.[address] Daly Isaac Work Phone: [facility] 02-10-2023 13:52-0400 Body mass index (BMI) [Ratio] 31 kg/m2 Dr. Daly Isaac Work Phone: [facility] 02-10-2023 13:52-0400 Body temperature 97.4 [degF] Dr. Daly Isaac Work Phone: [facility] 02-10-2023 13:52-0400 Body weight 100.[address] Daly Isaac Work Phone: [facility] 02-10-2023 13:52-0400 Diastolic blood pressure 67 mm[Hg] Dr. Daly Isaac Work Phone: [facility] 02-10-2023 13:52-0400 Heart rate 79 /min Dr. Daly Isaac Work Phone: [facility] 02-10-2023 13:52-0400 Respiratory rate 18 /min Dr. Daly Isaac Work Phone: [facility] 02-10-2023 13:52-0400 SaO2% (BldA) [Mass fraction] 95 % Dr. Daly Isaac Work Phone: [facility] 02-10-2023 13:52-0400 Systolic blood pressure 101 mm[Hg] Dr. Daly Isaac Work Phone: [facility] Encounters Encounter Date Encounter Type Care Provider Facility Start: 04-07-2024 End: 04-07-2024 ambulatory Daly Isaac Facility:[facility] Start: 08-11-2023 End: 08-11-2023 ambulatory [facility] Work Phone: Start: 08-11-2023 End: 08-11-2023 Patient encounter procedure [facility] Work Phone: Start: 08-11-2023 End: 08-11-2023 ambulatory Daly Isaac Facility:[facility] Start: 04-01-2023 Non-patient / Non-visit Dr. Greg Isaac Work Phone: [facility] Start: 04-01-2023 End: 04-01-2023 Admission to same day surgery center Dr. Daly Isaac Work Phone: [facility] Start: 04-01-2023 End: 04-01-[address] Daly Isaac Work Phone: [facility] Work Phone: Start: 02-10-2023 End: 02-10-[address] Daly Isaac Work Phone: [facility] Start: 01-15-2023 End: 01-15-2023 ambulatory [facility] Work Phone: Start: 01-15-2023 End: 01-15-2023 Patient encounter procedure [facility] Procedures Date Procedure Procedure Detail Performing Clinician Start: 04-01-[address] Daly Isaac Work Phone: Plan of Treatment Date Care Activity Detail Author Start: 04-01-2023 Patient discharge [facility] Patient referral [facility] Work Phone: Payers Date Payer Category Payer Medicare [id number] 2023 Private Health Insurance [facility] [id number] 2023 Self-pay [id number] Unknown ANTHEM/GERSTENSLAGER [id number] Unknown [facility] [id number] 1921 [id number] Unknown [id number] Unknown [id number] Social History Date Type Detail Facility Start: 12-09-2020 End: 03-31-2023 Tobacco smoking status NHIS Unknown if ever smoked [facility] Start: 11-03-2020 Non-smoker [facility] Start: 1955 Sex Assigned At Male [facility] Medical Equipment Procedure Code Equipment Code Equipment Origin al Text Equipment Identifier Dates Repair, hernia, ventral or umbilical, laparoscopic MESH,ECHO 15CM BILL [employer] FDA Start: 11-10-2020 Repair, hernia, ventral or umbilical, laparoscopic TACKER,SECURE STRAP FDA Start: 11-10-2020 Repair, hernia, ventral or umbilical, laparoscopic MESH,ECHO 15CM [employer]ILL [employer] [place] FDA Start: 11-10-2020 Repair, hernia, ventral or umbilical, laparoscopic TACKER,SECURE STRAP FDA Start: 11-10-2020 Repair, hernia, ventral or umbilical, laparoscopic MESH,ECHO 15CM [employer]ILL [employer] FDA Start: 11-10-2020 Repair, hernia, ventral or umbilical, laparoscopic TACKER,SECURE STRAP FDA Start: 11-10-2020 MESH,SELF FIX [id number] FDA Start: 09-17-2019 MESH,SELF FIX [id number] FDA Start: 09-17-2019 MESH,SELF FIX [id number] FDA Start: 09-17-2019 MESH,SELF FIX [id number] FDA Start: 09-17-2019 MESH,SELF FIX [id number] FDA Start: 09-17-2019 MESH,SELF FIX [id number] FDA Start: 09-17-2019 Goals Date Patient Goal Desired Activity /State Mental Status Date Assessment Result Facility 04-01-2023 Cognitive function Voice/Name [facility] Work Phone: Procedure note 04-01-2023 Note Date & Type Note Facility 04-01-2023 Procedure note [facility] Procedure note 04-01-2023 Note Date & Type Note Facility 04-01-2023 Procedure note [facility] Evaluation note Note Date & Type Note Facility Evaluation note No assessment information availa ble [facility] Work Phone: Evaluation note Note Date & Type Note Facility Evaluation note Diagnosis Onset Date History of colon polyps acut e [facility] Work Phone: History and physical note Note Date & Type Note Facility History and physical note Note Date/Time April 01, 2023 9:37am [facility] Medical Records Department [address] [place] [address] History & Physical Exam 04/01/23 0937 MR#: [id number] Acct: [id number] Name: ROSSY BRYAN Rep #:[id number] 1 : 1955 67 From: Porfirio mclean MD PCP: Dr. Daly Isaac MD Status:[facility] [place] [place] Location: [place] [address] History and Physical Date of Admission: 04/01/23 [...] Visit Reasons:?Colonoscopy/Tubular Adenoma Chief Complaint: Colonoscopy Consult Director [facility] Required: No Is patient in pain?: No [...] General: cooperative Orientation: alert and oriented [facility] Head: normal to inspection Neck Neck: normal [...] proceed with procedure. Porfirio Peraza MD Pager: [facility] [address] [place] [address] [address] [place] [address] Office: I have examined the patient and the H&P has been reviewed. There are no clinicalchanges since date of exam. 04/01/23 0937 <Electronically signed by Porfirio Peraza MD> Cosigner Signature (if applicable): CC: Dr. Porfirio Peraza MD; Dr. Daly Isaac MD~ Signed [facility] Work Phone: Family History No Family History Records Found Relationship Condition Age at Onset Recorded Date/T hannah aunt Cardiac disease Unknown uncle Cardiac disease Unknown mother Hypertension Unknown Cerebrovascular accident (CVA) Unknown Advance Directives No Advanced Directives Records Found Advance Directive Response Recorded Date/ Time Living Will No November 03 10:40am Power of Manager Investigations No November 03, 2020 10:40am Advance Directive Response Recorded Date/ Time Living Will No March 31, 2023 9:35am Power of Manager Investigations No March 31 9:35am Chief Complaint and [...] Provider Active Dr. Porfirio Peraza MD Attending Provider, Other Provider Active [...] section and content) DATE CREATED AUTHOR 04/20/2024 [facility] FOR RECORDS PERTAINING TO PATIENTS WHO ARE [...] BE BASED ON THE PRIMARY CLINICAL RECORDS. [employer] [facility]. provides no warranty or guarantee of the accuracy or completeness of information in this document.
--- NOTE | 2025-10-20 17:38 | CA.SCORE ---
Calcium Scoring Date of Study:: 10/08/25 Indications Indications: Screening Coronary Calcium Scoring: High-resolution Computed Tomographic imaging of the chest was performed on [10/08/25 ], with particular attention paid to the coronary arteries. Images from the examination were analyzed for the presence and extent of coronary artery calcification , using coronary calcium quantification software. The patient tolerated the procedure well and there were no complications. The results of the coronary calcification analysis are provided below. Findings Coronary Artery Left Main (LM): 4.17 Left Anterior Descending (LAD): 19.7 Left Circumflex (LCX): 181 Right Coronary Artery (RCA): 50 Total Agatston Score: 254.87 Percentile Rankin-75 Calcium Scoring Interpretation: Different methods to categorize the overall amount of coronary plaque. Overall amount CAC SIS Visual of coronary plaque P1 Mild -100 <2 1-2 vessels with mild amount of plaque P2 Moderate 101-300 3-4 1-2 vessels with moderate amount, 3 vessels with mild amount of plaque P3 Severe 301-999 5-7 3 vessels with moderate amount, 1 vessel with severe amount of plaque P4 Extensive >1000 >8 2-3 vessels with severe amount of plaque Calcium Score: Moderate: 1-2 vessels w/moderate amt, 3 vessels w/mild amt of plaque Conclusion: Mild three-vessel plaquing noted.
== END | disposition home or self-care (01) ==
PROVIDERS: PCP Family Medicine; Referring Provider Family Medicine; Visit Provider Family Medicine
DX: I10 Essential (primary) hypertension (principal); Z82.49 Family history of ischemic heart disease and other diseases of the circulatory system
CPT/HCPCS: 75571; 76380